=== PATIENT | female | born 1950 | race Hispanic/Latino ===

== ENCOUNTER 2017-04-02 22:09 | Inpatient (IN) | payer MEDICARE, BC ==
[~2017-04-02 22:09] MED LIST: Iopamidol 370 76% 100 ML VIAL ONE
[2017-04-02] MEDS ORDERED: Morphine 4 MG/ML VIAL ONE (22:39)
[2017-04-02] MEDS ORDERED: Promethazine HCl 25 MG/ML VIAL ONE (22:39)
[2017-04-02 22:57] LABS: #Lymphocytes 0.9 thou/uL (1.20-3.40); #Monocytes 0.5 thou/uL (0.11-0.59); %Eosinophils 0.4 % (0.0-10.0); %Lymphocytes 9.6 % (21.0-51.0); %Monocytes 5.1 % (0.0-10.0); Hematocrit 39.2 % (36.0-47.0); Mean Platelet Volume 7.8 fL (7.4-10.4); Red Blood Cell (RBC) Count 4.25 mill/uL (4.20-5.40); White Blood Cell (WBC) Count 9.4 thou/uL (4.8-10.8)
[2017-04-02 23:10] LABS: ALT (SGPT) 68 U/L (8-55); AST (SGOT) 130 U/L (5-34); Alkaline Phosphatase 146 U/L (40-150); Anion Gap 12 mmol/L (10-20); BUN (Urea Nitrogen) 15 mg/dL (9.8-20.1); Bilirubin, Total 1.1 mg/dL (0.2-1.2); Calc. Creatinine Clearance 0 mL/min (70-130); Calcium 9.5 mg/dL (7.8-10.44); Carbon Dioxide 28 mmol/L (23-31); Chloride 105 mmol/L (98-107); Estimated GFR-MDRD 90; Lipase 63 U/L (8-78); Magnesium 1.7 mg/dL (1.6-2.6); Protein, Total 6.9 g/dL (6.0-8.3)
[2017-04-02 23:15] LABS: Troponin I Less than 0.010 ng/mL (< 0.028)
--- NOTE | 2017-04-02 23:58 | CT ---
CT ABDOMEN AND PELVIS WITH IV CONTRAST: Indication: Epigastric abdominal pain, history of hypertension, diabetes and colon cancer. Comparison: 10-05-16 FINDINGS: There is post procedural change again seen consistent with end colostomy within the left lower quadra nt of the abdomen. Small Angel's pouch is present. Previously seen fluid collection within the lida anal region is no longer demonstrated. The bladder is decompressed. Small bowel is of normal caliber. No focal hepatic lesion is evident. Spleen, pancreas, and adrenal glands appear within normal limits . Kidneys are normal appearing. Small sub millimeter pulmonary nodule within the right middle lobe is stable. No acute osseous abnormality is evident. Multiple hemangiomas in the mid to lower thoracic s pine appear similar. Additional bone hemangioma is seen within L5. IMPRESSION: No definite CT explanation for the patient's abdominal pain. POS: ANGELA
[2017-04-03] MEDS ORDERED: Pantoprazole 40 MG VIAL ONE (00:12)
[2017-04-03] MEDS ORDERED: diphenhydrAMINE 50 MG/ML VIAL ONE (00:12)
[2017-04-03] MEDS ORDERED: Ondansetron HCl/PF 4 MG/2 ML Vial ONE ×2 (00:12→16:29)
[2017-04-03] MEDS ORDERED: Ondansetron HCl/PF 4 MG/2 ML Vial IVP PRN (01:58)
[2017-04-03] MEDS ORDERED: Ondansetron ODT 4 MG TAB SL PRN (01:58)
[2017-04-03] MEDS: Sodium Chloride 0.9% 1,000 ML IV SCH ×2 (02:00→09:58)
[2017-04-03 02:41] VITALS: BMI 45.3
[2017-04-03] MEDS ORDERED: Morphine 4 MG/ML VIAL SLOW IVP SCH (03:15)
--- NOTE | 2017-04-03 08:12 | RAD ---
PORTABLE CHEST: Date: 04/03/17 PROVIDED CLINICAL HISTORY: : Abdominal pain. FINDINGS: Comparison made with the study dated 12/30/16. The cardiac silhouette appears enlarged, which may be at least partially on the basis of portable conor hnique. Left-sided implanted port is again noted. There is mild kinking of the portion of the cathete r that overlies the left third rib, which was not apparent on the prior study. There is no focal cons olidation, pleural fluid, or pneumothorax apparent. IMPRESSION: Cardiomegaly without evidence for an acute cardiopulmonary process. Appearance of implanted port as a stacy. POS: OFF
[2017-04-03] MEDS ORDERED: Dextrose 50% Abboject 50 ML SYRINGE SLOW IVP PRN (08:56)
[2017-04-03] MEDS ORDERED: Dextrose 5% in Water 1,000 ML IV PRN (08:56)
[2017-04-03] MEDS ORDERED: Ondansetron ODT 4 MG TAB PO PRN (08:57)
[2017-04-03] MEDS ORDERED: Potassium Chloride 20 MEQ TAB PO SCH (09:00)
[2017-04-03] MEDS ORDERED: Non-Formulary Item 1 EACH (Insulin Glargine,Hum.Rec.Anlog 40 UNIT) SQ SCH (09:00)
[2017-04-03 09:28] LABS: #Lymphocytes 0.7 thou/uL (1.20-3.40); #Monocytes 0.2 thou/uL (0.11-0.59); #Neutrophils 5.8 thou/uL (1.40-6.50); %Basophils 0.1 % (0.0-1.0); %Eosinophils 0.1 % (0.0-10.0); %Lymphocytes 10.1 % (21.0-51.0); %Monocytes 3.4 % (0.0-10.0); Hematocrit 35.4 % (36.0-47.0); Mean Platelet Volume 8.4 fL (7.4-10.4); Red Blood Cell (RBC) Count 3.83 mill/uL (4.20-5.40); White Blood Cell (WBC) Count 6.8 thou/uL (4.8-10.8)
[2017-04-03] MEDS: Lisinopril 5 MG TAB PO SCH ×2 (09:47→21:57)
[2017-04-03] MEDS: Furosemide 40 MG TAB PO SCH (09:47)
[2017-04-03] MEDS: Insulin Detemir 100 UNITS/ML 40 UNITS in Pre-Filled Syringe 1 EACH SC SCH ×2 (09:48→21:54)
--- NOTE | 2017-04-03 09:55 | ULT ---
RIGHT UPPER QUADRANT ULTRASOUND: HISTORY: Right upper quadrant pain, nausea, vomiting, elevated LFTs. FINDINGS: Multiple longitudinal and transverse images of the right upper quadrant of the abdomen were obtained using a multihertz curvilinear transducer. Real-time, color flow, and spectral waveform Doppler anal ysis was used to evaluate the right upper quadrant of the abdomen. Images demonstrate fibrofatty changes seen in the liver. The gallbladder contains numerous echogenic foci with shadow compatible with numerous gallstones. No evidence of intrahepatic biliary dilatation is seen. The gallbladder wall is moderately thickened m easuring up to 7 mm. No evidence of intrahepatic biliary dilatation is seen. Normal hepatopetal flow is seen. Cholelithiasis with gallbladder wall thickening concerning for cholecystitis. POS: [facility]
[2017-04-03 10:02] LABS: ALT (SGPT) 169 U/L (8-55); AST (SGOT) 222 U/L (5-34); Alkaline Phosphatase 159 U/L (40-150); Anion Gap 9 mmol/L (10-20); BUN (Urea Nitrogen) 15 mg/dL (9.8-20.1); Bilirubin, Total 2.6 mg/dL (0.2-1.2); Calc. Creatinine Clearance 131 mL/min (70-130); Calcium 8.9 mg/dL (7.8-10.44); Carbon Dioxide 30 mmol/L (23-31); Chloride 104 mmol/L (98-107); Estimated GFR-MDRD 77; Globulin 2.8 g/dL (2.4-3.5); Lipase 55 U/L (8-78); Protein, Total 6.4 g/dL (6.0-8.3)
[2017-04-03] MEDS: HumaLOG 300 UNITS/3 ML VIAL SC PRN (13:38)
[2017-04-03] MEDS ORDERED: cefOXitin 2 GM in Sodium Chloride 0.9% 100 ML IVPB SCH ×2 (13:45→22:00)
[2017-04-03] MEDS ORDERED: cefOXitin 2 GM, Syringe 1 ML in Sterile Water 10 ML SLOW IVP SCH (14:15)
--- NOTE | 2017-04-03 14:31 | HP ---
CHIEF COMPLAINT: Epigastric abdominal pain. HISTORY: This 66-year-old female developed acute onset of severe epigastric pain yesterday, radiatin g to back, associated with nausea and vomiting. Ultrasound showed thickened gallbladder wall with ga llstones. PAST MEDICAL HISTORY: Significant for colon cancer, diabetes, gastroesophageal reflux. PAST SURGICAL HISTORY: Past surgeries include an abdominoperineal resection, MediPort placement. SOCIAL HISTORY: She is a former tobacco user. Drinks alcohol rarely. FAMILY HISTORY: Noncontributory. MEDICATIONS: Lantus, metformin, Humalog, Nexium, pentoxifylline, carbamazepine, Lasix, aspirin, hydr ocodone, potassium, lisinopril. PHYSICAL EXAMINATION: VITAL SIGNS: Temperature 98.5, pulse 70, blood pressure 134/58. GENERAL: She is an obese female in no apparent distress. HEENT: No jaundice. LUNGS: Clear. HEART: Regular rate and rhythm. ABDOMEN: Obese, soft, nontender at this time. She has a well-healed surgical scar low midline as we ll as a colostomy in the left lower quadrant. EXTREMITIES: Unremarkable. LABORATORY DATA: White count 6.8, H and H 11 and 35, platelet count 188. LFTs show an elevated tota l bilirubin at 2.6, AST at 222, ALT 169, alkaline phosphatase 159, glucose 270. An ultrasound showed gallstones with a gallbladder wall thickening consistent with acute cholecystiti s. ASSESSMENT: Acute cholecystitis. PLAN: Laparoscopic cholecystectomy with cholangiogram. CONSENT: I have discussed the planned procedure as well as risk of bleeding, infection, injury to bi le duct, injury to bowel, need to open. She understands and gives informed consent.
[2017-04-03] MEDS ORDERED: Morphine PF 1 MG/ML SYR IVP SCH (15:00)
[2017-04-03] MEDS ORDERED: Iothalamate Meglumine 60% 50 ML VIAL FS ONE (16:26)
[2017-04-03] MEDS ORDERED: Bupivacaine/Epinephrine 0.25% 30 ML VIAL ONE (16:26)
[2017-04-03] MEDS ORDERED: Lidocaine 1% PF 5 ML VIAL ONE (16:29)
[2017-04-03] MEDS ORDERED: ePHEDrine/0.9% NaCl/PF SYRINGE 50 mg/10 ml ONE (16:29)
[2017-04-03] MEDS ORDERED: Dexamethasone 20 MG/5 ML VIAL ONE (16:29)
[2017-04-03] MEDS ORDERED: Glycopyrrolate 0.2 MG/ML 5 ML SYRINGE ONE (16:29)
[2017-04-03] MEDS ORDERED: Propofol 200 MG/20 ML VIAL ONE (16:29)
[2017-04-03] MEDS ORDERED: Fentanyl 250 MCG/5 ML VIAL ONE (16:36)
[2017-04-03] MEDS ORDERED: Midazolam HCl 2 mg/2 ml Vial ONE (16:36)
[2017-04-03] MEDS ORDERED: Promethazine HCl 25 MG/ML VIAL SLOW IVP PRN (17:53)
[2017-04-03] MEDS ORDERED: Morphine Sulfate 2 MG/ML SYRINGE SLOW IVP PRN (17:53)
[2017-04-03] MEDS ORDERED: HYDROmorphone 2 MG/ML VIAL SLOW IVP PRN (17:53)
[2017-04-03] MEDS ORDERED: Meperidine HCl/PF 25 MG/ML VIAL SLOW IVP PRN (17:53)
[2017-04-03] MEDS ORDERED: Promethazine HCl 25 MG/ML VIAL ONE (19:02)
[2017-04-03] MEDS ORDERED: Morphine 4 MG/ML VIAL ONE ×2 (19:07→19:19)
--- NOTE | 2017-04-03 19:28 | RAD ---
INTRAOPERATIVE CHOLANGIOGRAM: History: Cholelithiasis. Comparison: None. Exposure: 0.338 milligray. 0.0862 mGy*cm^2. 1 second. FINDINGS: Two images demonstrate opacification of the intra and extrahepatic biliary system. There is passage o f contrast into the small bowel. IMPRESSION: Fluoroscopy as above. POS: ANGELA
[2017-04-03] MEDS ORDERED: HYDROcodone/Acetaminophen 7.5/325 mg Tablet PO PRN (19:37)
[2017-04-03] MEDS: Gabapentin 100 MG CAP PO SCH (21:55)
[2017-04-03] MEDS: D5 1/2 NS w/20 mEq KCL 1,000 ML IV SCH (22:08)
[2017-04-03] MEDS: cefOXitin 2 GM, Syringe 1 ML in Sterile Water 10 ML SLOW IVP SCH (22:52)
[2017-04-03] MEDS: Morphine 4 MG/ML VIAL SLOW IVP PRN (22:59)
--- NOTE | 2017-04-04 00:30 | OP ---
PREOPERATIVE DIAGNOSIS: Acute cholecystitis with elevated liver function tests. SURGEON: Sea Burnette M.D. PROCEDURE PERFORMED: Laparoscopic cholecystectomy with intraoperative cholangiogram. INDICATIONS: This is a 66-year-old female, who presented with severe midepigastric pain radiating to the back, associated with nausea. Ultrasound and CT showed a thickened gallbladder wall with multip le stones. FINDINGS: A thickened gallbladder wall, multiple stones, cholangiogram was negative. She had a very fatty liver. DESCRIPTION OF PROCEDURE: After informed consent was obtained, the patient was taken to the operatin g room and given general endotracheal anesthesia. She was placed in the supine position. The abdome n was prepped and draped in the usual fashion. An upper midline incision was performed. Subcu divid ed sharply. The fascia grasped and two stay sutures of 0 Vicryl placed to either side of midline. M idline incised. Digital palpation revealed no local adhesions. A blunt 10-12 mm trocar inserted. P neumoperitoneum was created to a pressure of 15 mmHg. A 0 degree laparoscope inserted and her transv erse colon was plastered up against the anterior abdominal wall. I was able to insert my finger and very gently was able to dissect that down to create a space then reinserted the camera and at this ti me, there was a clear view of the liver and gallbladder. The patient placed in the reverse Trendelen lj position and three 5-mm ports were placed subcostally. The gallbladder grasped and advanced sup eriorly. The peritoneum was dissected off to expose the cystic duct, artery and critical view. A cl ip was placed at the base of the gallbladder and the cystic duct incised. An Arrow cholangiocatheter inserted. Intraoperative cholangiogram was performed utilizing fluoroscopy showing free flow into t he duodenum, no filling defects, normal hepatic ducts. The catheter removed. The duct triply ligate d and divided. The artery triply ligated and divided. The gallbladder was removed from its fossa ut ilizing electrocautery. She had a very, very fatty liver that was engorged and very quite a bit of b lood from the liver bed. This was controlled utilizing electrocautery as well as Jackie powder. The abdomen irrigated and irrigation fluid removed. Trocars and retractors removed. The fascia closed with interrupted 0 Vicryl suture. The skin closed with interrupted 4-0 Rapide. Dermabond applied. The patient tolerated the procedure well and transferred to recovery in good condition. Sponge and n eedle count verified correct x2.
[2017-04-04] MEDS: HYDROcodone/Acetaminophen 7.5/325 mg Tablet PO PRN ×2 (01:57→07:20)
[2017-04-04] MEDS: cefOXitin 2 GM, Syringe 1 ML in Sterile Water 10 ML SLOW IVP SCH ×3 (06:22→21:31)
[2017-04-04] MEDS: HumaLOG 300 UNITS/3 ML VIAL SC PRN ×3 (06:29→20:36)
--- NOTE | 2017-04-04 07:11 | HP ---
DATE OF ADMISSION: 04/03/2017 TIME OF SERVICE: 08:30 CHIEF COMPLAINT: Abdominal pain, nausea, and vomiting. HISTORY OF PRESENT ILLNESS: Ms. Boo is a very pleasant 66-year-old female with a history of rectal cancer status post resection, diabetes , and GERD who at 8:20 p.m. the night prior to admission, developed epigastric pain and left lateral abdominal pain. She has a sharp sensation, 10/10, that was fairly unrelenting approach. She had eaten food throughout the day without much difficulty associated with that. She did have nausea and vomiting and vomited basically from 8:20 p.m. until 04:00 after admission. Denied blood in bile. She said it was almost projectile and was asked to clean her parker. At this time, the pain is gone. Just has the dull ache from her sore abdominal muscles. She has been sleeping pretty well from 04:00 to 06:45. She describes the pain in the left lateral abdomen, however, states that she has had some sharp pains present in the right upper abdomen as well. No diarrhea, no GI bleeding from above or below. No fevers or chills, and sugars have been elevated recently. PAST MEDICAL HISTORY: 1. Diabetes mellitus type 2. 2. Gastroesophageal reflux disease. 3. Adenocarcinoma of the rectosigmoid colon. PAST SURGICAL HISTORY: Includes: 1. MediPort placement on 12/30/[address] Burnette. 2. I&D of a perineal abscess, 08/14/[address] Burentte. 3. Rectal cancer resection, 07/11/[address] Burnette. 4. Partial hysterectomy in 1976. 5. Total abdominal hysterectomy and bilateral salpingo-oophorectomy in 1980. HOME MEDICATIONS: 1. Humalog sliding scale. 2. Lantus 40 units subcutaneously b.i.d. 3. Neurontin 400 mg p.o. at bedtime. 4. Lasix 40 mg daily. 5. Nexium 40 mg p.o. daily. 6. Tegretol-XR 200 mg p.o. b.i.d. 7. Potassium chloride 20 mEq daily. 8. Zofran 4 mg p.o. q.4 hours p.r.n. 9. Lisinopril 5 mg p.o. b.i.d. 10. Metformin 1000 mg p.o. b.i.d. 11. Aspirin 81 mg daily. 12. Trental 400 mg p.o. t.i.d. ALLERGIES: To SULFA. FAMILY HISTORY: Negative for clotting or bleeding disorder, no immune dysfunction. SOCIAL HISTORY: Negative for habits x3. She is . She does live at home and lives alone. She has 2 daughters that are here in the room. REVIEW OF SYSTEMS: Full 10-point review of systems was performed and negative for all other systems except as stated as per HPI. PHYSICAL EXAMINATION: VITAL SIGNS: Temperature 98.8, pulse 53, blood pressure 186/72, respiratory rate 18, satting at 90%-95% on 2 liters nasal cannula. GENERAL: She is awake. She is alert. She is oriented x3. The patient is obese female appears to be in no acute distress. HEENT: Head is normocephalic, atraumatic. Pupils equal, round and reactive to light bilaterally. Mucous membranes are moist. There are no visible lesions. No thrush. NECK: Supple, without lymphadenopathy, JVD or thyromegaly. LUNGS: Clear. She has no wheezes, no rales, no rhonchi. No prolonged expiratory phase. She has symmetrical chest excursion. CARDIOVASCULAR: Normal S1, S2. She does not have any murmurs. No gallops. ABDOMEN: Obese, mildly diffusely tender. She has significantly increased pain to the right upper quadrant and does have a Plascencia sign. She has no rebound, rigidity or guarding. EXTREMITIES: No cyanosis or clubbing. She has no edema. SKIN: Warm, moist, well perfused without rashes or lesions. MUSCULOSKELETAL: Shows joints to be noninflamed. No palpable joint effusion, normal to inspection. NEUROLOGIC: Shows cranial nerves II through XII are grossly intact. She has no focal neurologic deficits, 5/5 strength, normal speech pattern. LABORATORY DATA: CMP is normal except for an AST of 130 and ALT of 68. Creatinine 0.66. Electrolytes normal. Total white count 9.4, hemoglobin 12.7, hematocrit 39.2, platelet count 188,000. X-RAY FINDINGS: Chest x-ray showed no acute disease and CT abdomen and pelvis showed colostomy intact. She has no fluid outside the bowel. ASSESSMENT AND PLAN: 1. Abdominal pain, nausea, vomiting. She does have increased LFTs and a Plascencia sign. We will get an abdominal ultrasound to look for gallbladder disease. If possible, Call Dr. Burnette for consideration of a laparoscopic cholecystectomy. 2. Diabetes mellitus type 2, insulin-dependent. She will be n.p.o. until ultrasound. We will resume her Lantus after that. We will hold her metformin at present. Check lactic acid. 3. Gastroesophageal reflux disease. We will continue her PPI. 4. History of rectosigmoid adenocarcinoma, status post resection with colostomy and seems to functioning just fine. CT of the abdomen and pelvis, negative for intra-abdominal pathology, but sensitivity for gallbladder disease is lower. We will follow up on the results. DAYRON
[2017-04-04 07:32] LABS: #Lymphocytes 0.7 thou/uL (1.20-3.40); #Monocytes 0.3 thou/uL (0.11-0.59); #Neutrophils 4.2 thou/uL (1.40-6.50); %Basophils 0.1 % (0.0-1.0); %Eosinophils 0.2 % (0.0-10.0); %Lymphocytes 13.5 % (21.0-51.0); %Monocytes 5.5 % (0.0-10.0); Hematocrit 35.7 % (36.0-47.0); Mean Platelet Volume 8.3 fL (7.4-10.4); Red Blood Cell (RBC) Count 3.73 mill/uL (4.20-5.40); White Blood Cell (WBC) Count 5.2 thou/uL (4.8-10.8)
[2017-04-04 07:56] LABS: ALT (SGPT) 217 U/L (8-55); AST (SGOT) 183 U/L (5-34); Alkaline Phosphatase 176 U/L (40-150); Anion Gap 11 mmol/L (10-20); BUN (Urea Nitrogen) 14 mg/dL (9.8-20.1); Bilirubin, Total 2.5 mg/dL (0.2-1.2); Calc. Creatinine Clearance 124 mL/min (70-130); Calcium 8.5 mg/dL (7.8-10.44); Carbon Dioxide 26 mmol/L (23-31); Chloride 107 mmol/L (98-107); Estimated GFR-MDRD 73; Globulin 2.6 g/dL (2.4-3.5); Magnesium 1.5 mg/dL (1.6-2.6); Protein, Total 5.8 g/dL (6.0-8.3)
[2017-04-04] MEDS: Ondansetron HCl/PF 4 MG/2 ML Vial IVP PRN ×2 (08:04→11:53)
[2017-04-04] MEDS: D5 1/2 NS w/20 mEq KCL 1,000 ML IV SCH ×2 (08:18→21:31)
[2017-04-04] MEDS: Morphine 4 MG/ML VIAL SLOW IVP PRN ×2 (09:03→11:57)
[2017-04-04] MEDS: Furosemide 40 MG TAB PO SCH (10:14)
[2017-04-04] MEDS: Insulin Detemir 100 UNITS/ML 40 UNITS in Pre-Filled Syringe 1 EACH SC SCH ×3 (10:14→20:34)
[2017-04-04] MEDS: Lisinopril 5 MG TAB PO SCH ×2 (10:15→20:36)
[2017-04-04] MEDS ORDERED: hydrALAZINE 20 MG/ML VIAL SLOW IVP SCH (11:15)
--- NOTE | 2017-04-04 11:43 | PDOC.PN ---
- Subjective Encounter Start Date: 04/04/17 Encounter Start Time: 10:00 Pt underwent laparoscopic cholecystectomy yesterday. fatty liver noted, thicken GB wall descirbed. Stones present in GB, IOC performed and no filling defect seen. Pt afebrile overnight, but this morning, developed epigastric pain exactly like what she had when she came in recurred. Unresponsive to po norco and 4mg IV morphine. Pt screaming out, cant take a deep breath due to pain. No N/V, no CP, no chills or rigors - Objective Resuscitation Status: full MAR Reviewed: Yes Vital Signs & Weight: Vital Signs (12 hours) Temp Pulse Resp BP Pulse Ox 04/04/17 10:15 68 04/04/17 07:46 99.8 F H 68 16 04/04/17 07:30 99.1 F 71 18 161/70 H 92 L 04/04/17 04:00 99.8 F H 68 16 131/56 L 92 L 04/04/17 01:30 71 16 139/64 04/04/17 00:30 72 16 144/65 H 04/03/17 23:55 73 16 151/65 H Weight Weight 248 lb I&O: 04/03/17 04/04/17 04/05/17 06:59 06:59 06:59 Intake Total 500 1271 Balance 500 1271 Result Diagrams: 04/04/17 07:19 04/04/17 07:19 Additional Labs: Accuchecks 04/04/17 04/03/17 04/03/17 06:26 20:53 15:37 POC Glucose 263 H 189 H 162 H Radiology Reviewed by me: Yes EKG Reviewed by me: No Phys Exam - Physical Examination Constitutional: NAD HEENT: PERRLA, moist MMs, sclera anicteric, oral pharynx no lesions Neck: no nodes, no JVD, supple, full ROM Respiratory: no wheezing, no rales, no rhonchi, clear to auscultation bilateral Cardiovascular: RRR, no significant murmur, no rub Gastrointestinal: no distention, positive bowel sounds epigatric tenderness, no rebound, present BS Musculoskeletal: no edema, pulses present Neurological: non-focal, normal sensation, moves all 4 limbs Lymphatic: no nodes Psychiatric: normal affect, A&O x 3 Skin: no rash, normal turgor, cap refill <2 seconds Dx/Plan (1) Acute calculous cholecystitis Code(s): K80.00 - CALCULUS OF GALLBLADDER W ACUTE CHOLECYST W/O OBSTRUCTION Status: Resolved Comment: s/p lap vinnie 04/03/2017 (2) Abdominal pain Code(s): R10.9 - UNSPECIFIED ABDOMINAL PAIN Status: Acute Qualifiers: Abdominal location: epigastric Qualified Code(s): R10.13 - Epigastric pain Comment: post lap vinnie. nursing to contact Dr Rivero, will get a STAT repeat CT to R/O hemtoma, large leak. (3) DM2 (diabetes mellitus, type 2) Status: Chronic Qualifiers: Diabetes mellitus complication status: without complication Diabetes mellitus termite exterminator insulin use: with termite exterminator use Qualified Code(s): E11.9 - Type 2 diabetes mellitus without complications; Z79.4 - MCFP (current) use of insulin; Z79.4 - exterminator (current) use of insulin; Z79.4 - exterminator ( current) use of insulin; Z79.4 - exterminator (current) use of insulin (4) Rectal cancer Code(s): C20 - MALIGNANT NEOPLASM OF RECTUM Status: Chronic - Plan cont current plan of care, plan discussed w/ family * .
--- NOTE | 2017-04-04 12:49 | CT ---
CT ABDOMEN AND PELVIS: 04/04/2017 HISTORY: Abdominal pain following laparoscopic cholecystectomy, performed on 04/03/2017. History of rectal ca ncer. COMPARISON: 04/02/2017, 10/05/2016, 09/22/2016 TECHNIQUE: Serial axial CT imaging is obtained at 5 mm intervals, from the lung bases through the pubic symphysi s, with IV and oral contrast. Coronal reformatted imaging obtained. FINDINGS: Tiny bilateral pleural effusions are noted with adjacent atelectasis. There are numerous foci of subcutaneous gas anteriorly, in the right upper quadrant and in the perium bilical region, consistent with the provided history of cholecystectomy on 04/03/2017. In addition, there is small volume intraperitoneal gas, consistent with recent surgery. There are cholecystectomy clips present. No focal hepatic or splenic abnormality. The pancreas and adrenal glands demonstrate no acute findings. The kidneys are grossly unremarkable. There is small volume fluid in the gallbladder fossa region, of uncertain significance given very rec ent cholecystectomy. The fluid within the gallbladder fossa is ill defined and measures in the 1.7 x 3.9 x 1.6 cm range. Minimal stranding of the adjacent fat inferior to this extends to abut the brad on of the hepatic flexure. There is a left lower quadrant ostomy with associated fat-containing parastomal hernia, unchanged whe n compared to the prior exam. There is some gas within the hernia sac, consistent with recent surger y. there is an ill defined, irregular soft tissue mass density at the level of the rectal stump/presacra l space, measuring approximately 5 cm in transverse dimension. The soft tissue irregular mass densit y has been seen in this region on numerous prior CT examinations, not significantly changed. There is small volume fluid trapped within leaves of the mesentery, inferiorly, within the pelvis, be st seen on image 80, new when compared to the prior exam. There is no evidence for small bowel obstruction. There are small nodes in the norma hepatis, similar when compared to prior imaging. There is a retroaortic left renal vein. There is no lymphadenopathy in the retroperitoneum. There is extensive atherosclerotic calcification of the infrarenal abdominal aorta and its branches. The osseous structures demonstrate multilevel degenerative change within the lumbar spine and imaged thoracic spine. There is no worrisome lytic or blastic bone lesion identified. IMPRESSION: 1. Foci of subcutaneous gas, as well as foci of intraperitoneal gas, consistent with the patient's h istory of cholecystectomy on 04/03/2017. There is small volume fluid within the gallbladder fossa an d within the mesentery inferiorly. The significance of this fluid is uncertain, given very recent hernandez rgery. If there is persistent pain or concern for biliary leak, a follow-up hepatobiliary scan is ad vised. 2. No evidence for small bowel obstruction. 3. There is irregular soft tissue mass-like opacity in the presacral space, at the level of the lizzy ent's rectal stump, etiology uncertain. This could represent tumor, scar, or resolving inflammatory/ infectious process. Close clinical followup is required. POS: ANGELA
[2017-04-04] MEDS: Morphine 4 MG/ML VIAL SLOW IVP SCH ×4 (13:02→16:12)
[2017-04-04] MEDS: Promethazine HCl 25 MG/ML VIAL IM/IV PRN (13:03)
--- NOTE | 2017-04-04 13:11 | EKG ---
Test Reason : PREOP Blood Pressure : / mmHG Vent. Rate : 066 BPM Atrial Rate : 066 BPM P-R Int : 306 ms QRS Dur : 078 ms QT Int : 410 ms P-R-T Axes : 045 016 036 degrees QTc Int : 429 ms Sinus rhythm with 1st degree A-V block Otherwise normal ECG When compared with ECG of 03-APR-2017 01:15:08, No significant change was found Confirmed by JOSE LUIS FERRER ([id number]) on 04/04/2017 1:11:16 PM Referred By: MERRY Confirmed By:JOSE LUIS FERRER
[2017-04-04] MEDS: Gabapentin 100 MG CAP PO SCH (20:37)
[2017-04-05 05:29] LABS: #Eosinphils 0.1 thou/uL (0.0-0.7); #Lymphocytes 0.8 thou/uL (1.20-3.40); #Monocytes 0.5 thou/uL (0.11-0.59); #Neutrophils 5.3 thou/uL (1.40-6.50); %Basophils 0.1 % (0.0-1.0); %Eosinophils 0.8 % (0.0-10.0); %Lymphocytes 12.6 % (21.0-51.0); %Monocytes 7.7 % (0.0-10.0); Hematocrit 32.2 % (36.0-47.0); Mean Platelet Volume 8.3 fL (7.4-10.4); Red Blood Cell (RBC) Count 3.39 mill/uL (4.20-5.40); White Blood Cell (WBC) Count 6.7 thou/uL (4.8-10.8)
[2017-04-05 05:48] LABS: ALT (SGPT) 164 U/L (8-55); AST (SGOT) 73 U/L (5-34); Alkaline Phosphatase 182 U/L (40-150); Anion Gap 8 mmol/L (10-20); BUN (Urea Nitrogen) 9 mg/dL (9.8-20.1); Bilirubin, Total 1.5 mg/dL (0.2-1.2); Calc. Creatinine Clearance 172 mL/min (70-130); Calcium 8.3 mg/dL (7.8-10.44); Carbon Dioxide 26 mmol/L (23-31); Chloride 107 mmol/L (98-107); Estimated GFR-MDRD Greater than 90; Globulin 2.7 g/dL (2.4-3.5); Magnesium 1.8 mg/dL (1.6-2.6); Protein, Total 5.7 g/dL (6.0-8.3)
[2017-04-05] MEDS: cefOXitin 2 GM, Syringe 1 ML in Sterile Water 10 ML SLOW IVP SCH ×3 (06:04→21:39)
[2017-04-05] MEDS: Morphine 4 MG/ML VIAL SLOW IVP PRN ×5 (06:47→21:51)
[2017-04-05] MEDS: Ondansetron HCl/PF 4 MG/2 ML Vial IVP PRN ×2 (06:49→13:34)
[2017-04-05] MEDS ORDERED: Acetaminophen 1,000 MG in Premix Bag 1 BAG IVPB PRN (07:05)
[2017-04-05] MEDS: D5 1/2 NS w/20 mEq KCL 1,000 ML IV SCH ×3 (07:51→18:35)
[2017-04-05] MEDS: Ketorolac Tromethamine 30 MG/ML VIAL IVP PRN ×2 (07:54→13:34)
[2017-04-05] MEDS: Pantoprazole 40 MG VIAL IVP SCH (08:34)
[2017-04-05] MEDS: Promethazine HCl 25 MG/ML VIAL IM/IV PRN ×2 (08:34→14:05)
[2017-04-05] MEDS: Furosemide 40 MG TAB PO SCH (08:51)
[2017-04-05] MEDS: Insulin Detemir 100 UNITS/ML 40 UNITS in Pre-Filled Syringe 1 EACH SC SCH ×2 (08:51→21:41)
[2017-04-05] MEDS: Lisinopril 5 MG TAB PO SCH ×2 (08:52→21:38)
[2017-04-05] MEDS ORDERED: Scopolamine 1.5 mg/72 hour Patch TOP PRN (11:13)
[2017-04-05] MEDS ORDERED: Fentanyl 100 MCG/2 ML VIAL SLOW IVP PRN (11:13)
[2017-04-05] MEDS: HumaLOG 300 UNITS/3 ML VIAL SC PRN ×2 (12:33→16:42)
--- NOTE | 2017-04-05 14:32 | PDOC.PN ---
- Subjective Encounter Start Date: 04/05/17 Encounter Start Time: 08:15 Pt seen and examined earlier on rounds. Dr Burnette in earlier, PT with increased abd pain againthis morning after being much better last evening. No F/c, no N/ VD/C, no CP or SOB. epigastric sharp stabbing pain. Labs reviewed, 10 point ROS performed and neg for all systems except as per HPI - Objective Resuscitation Status: full MAR Reviewed: Yes Vital Signs & Weight: Vital Signs (12 hours) Temp Pulse Resp BP Pulse Ox 04/05/17 08:52 69 04/05/17 08:30 97.5 F L 69 20 96 04/05/17 07:15 97.5 F L 69 184/77 H 96 04/05/17 03:55 99.3 F 64 16 131/63 94 L Weight Admit Weight 248 lb Weight 248 lb I&O: 04/04/17 04/05/17 04/06/17 06:59 06:59 06:59 Intake Total 2770 Balance 2770 Result Diagrams: 04/05/17 04:07 04/05/17 04:07 Additional Labs: Accuchecks 04/05/17 04/05/17 04/04/17 11:29 05:43 20:12 POC Glucose 238 H 154 H 242 H 04/04/17 15:50 POC Glucose 275 H Radiology Reviewed by me: Yes EKG Reviewed by me: Yes Phys Exam - Physical Examination Constitutional: NAD HEENT: PERRLA, moist MMs, sclera anicteric, oral pharynx no lesions Neck: no nodes, no JVD, supple, full ROM Respiratory: no wheezing, no rales, no rhonchi, clear to auscultation bilateral Cardiovascular: RRR, no significant murmur, no rub Gastrointestinal: soft, no distention, positive bowel sounds epigastric tenderness, no lundberg sign, no rebound, no guarding Musculoskeletal: no edema, pulses present Neurological: non-focal, normal sensation, moves all 4 limbs Lymphatic: no nodes Psychiatric: normal affect, A&O x 3 Skin: no rash, normal turgor, cap refill <2 seconds Dx/Plan (1) Acute calculous cholecystitis Code(s): K80.00 - CALCULUS OF GALLBLADDER W ACUTE CHOLECYST W/O OBSTRUCTION Status: Resolved Comment: s/p lap vinnie 04/03/2017. Path with chronic cholecystitis (2) Abdominal pain Code(s): R10.9 - UNSPECIFIED ABDOMINAL PAIN Status: Acute Qualifiers: Abdominal location: epigastric Qualified Code(s): R10.13 - Epigastric pain Comment: post lap vinnie. Will discuss with dr Burnette, Ct unrevelaing yesterday, labs slightly better (3) DM2 (diabetes mellitus, type 2) Status: Chronic Qualifiers: Diabetes mellitus complication status: without complication Diabetes mellitus usp insulin use: with termite technician use Qualified Code(s): E11.9 - Type 2 diabetes mellitus without complications; Z79.4 - alf (current) use of insulin; Z79.4 - alf (current) use of insulin; Z79.4 - supervisor intermediates ( current) use of insulin; Z79.4 - supervisor intermediates (current) use of insulin (4) Rectal cancer Code(s): C20 - MALIGNANT NEOPLASM OF RECTUM Status: Chronic - Plan cont current plan of care, plan discussed w/ family, PT/OT, out of bed/ambulate * .
[2017-04-05] MEDS: hydrALAZINE 20 MG/ML VIAL SLOW IVP PRN (17:18)
[2017-04-05] MEDS: Gabapentin 100 MG CAP PO SCH (21:39)
--- NOTE | 2017-04-05 22:51 | CON ---
DATE OF CONSULTATION: 04/05/2017 HISTORY OF PRESENT ILLNESS: The patient is a 66-year-old female who was admitted on 017 for several day history of epigastric pain. This pain is nonradiating. It is associated with na usea, vomiting. She had a similar episode when she had vertigo, but she is having no vertigo now. T he patient was seen by Dr. Burnette and underwent a cholecystectomy and intraoperative cholangiogram. T his did not seem to relieve her pain. PAST MEDICAL HISTORY: Includes rectal cancer with radiation and colostomy placement, diabetes mellit us, gastroesophageal reflux. PAST SURGICAL HISTORY: Includes APR for rectal cancer, MediPort placement. MEDICATIONS: At the present time include Tegretol-XR 200 mg p.o. b.i.d., Mefoxin 2 grams IV q.8 hour s, fentanyl 50 mcg IV q.4 hours p.r.n., Lasix 40 mg p.o. q. day, Neurontin 100 mg p.o. at bedtime, in sulin sliding scale, Toradol 30 mg IV q.6 hours p.r.n., lisinopril 5 mg p.o. b.i.d., Protonix 40 mg p .o. q. day, treadmill 40 mg p.o. t.i.d. ALLERGIES: SULFA. SOCIAL HISTORY: She does not smoke or drink. FAMILY HISTORY: Negative for GI or liver disease. REVIEW OF SYSTEMS: Unobtainable. PHYSICAL EXAMINATION: GENERAL: Shows an obese female in moderate pain. VITAL SIGNS: Temperature is 98.8, pulse 70, respiratory rate 16, blood pressure 186/78. HEENT: Unremarkable. NECK: Supple. CHEST: Clear. CARDIOVASCULAR: Regular rate and rhythm. ABDOMEN: Soft, tender in the epigastric with some rebound. She has a colostomy in the left lower qu adrant and appears normal. RECTAL: Deferred. EXTREMITIES: Normal. LABORATORY DATA: Shows a white blood cell count 6.7, hemoglobin 10.5, hematocrit 32.5 and chemistrie s show a BUN 9, creatinine 0.57, glucose 148, total bilirubin 1.5, AST of 73, ALT of 164, alkaline ph osphatase 182, albumin is 3.0. Intraoperative cholangiogram shows 2 images of the intra and extrahep atic biliary system. There is flow into the small bowel. The actual films are not able to be viewed at this time. ASSESSMENT: 1. Severe epigastric pain. 2. History of rectal cancer. 3. Recent laparoscopic cholecystectomy. 4. Abnormal liver function tests. The patient had an intraoperative cholangiogram that did not show any stones per radiology report, however, this cannot be viewed directly, considering her abnormal l iver function tests, concern that maybe a common duct stone is present. RECOMMENDATIONS: 1. EGD in a.m. 2. Continue to follow LFTs.
[2017-04-06] MEDS: Morphine 4 MG/ML VIAL SLOW IVP PRN (03:03)
[2017-04-06] MEDS: Ondansetron HCl/PF 4 MG/2 ML Vial IVP PRN (03:07)
[2017-04-06 04:16] LABS: #Lymphocytes 0.5 thou/uL (1.20-3.40); #Monocytes 0.4 thou/uL (0.11-0.59); #Neutrophils 6.2 thou/uL (1.40-6.50); %Basophils 0.2 % (0.0-1.0); %Eosinophils 0.4 % (0.0-10.0); %Lymphocytes 7.2 % (21.0-51.0); %Monocytes 5.2 % (0.0-10.0); Hematocrit 39.4 % (36.0-47.0); Mean Platelet Volume 8.6 fL (7.4-10.4); Red Blood Cell (RBC) Count 4.18 mill/uL (4.20-5.40); White Blood Cell (WBC) Count 7.1 thou/uL (4.8-10.8)
[2017-04-06] MEDS: D5 1/2 NS w/20 mEq KCL 1,000 ML IV SCH ×2 (05:18→18:24)
[2017-04-06] MEDS: cefOXitin 2 GM, Syringe 1 ML in Sterile Water 10 ML SLOW IVP SCH ×3 (05:19→21:36)
[2017-04-06] MEDS: hydrALAZINE 20 MG/ML VIAL SLOW IVP PRN ×3 (05:25→20:49)
[2017-04-06 06:18] LABS: Chloride 106 mmol/L (98-107)
[2017-04-06 06:19] LABS: Calcium 8.7 mg/dL (7.8-10.44)
[2017-04-06 06:20] LABS: Globulin 2.8 g/dL (2.4-3.5); Protein, Total 5.8 g/dL (6.0-8.3)
[2017-04-06 06:21] LABS: Anion Gap 9 mmol/L (10-20); Bilirubin, Total 0.9 mg/dL (0.2-1.2); Carbon Dioxide 24 mmol/L (23-31)
[2017-04-06 06:22] LABS: Alkaline Phosphatase 180 U/L (40-150)
[2017-04-06 06:23] LABS: Calc. Creatinine Clearance 172 mL/min (70-130); Estimated GFR-MDRD Greater than 90
[2017-04-06 06:24] LABS: BUN (Urea Nitrogen) 6 mg/dL (9.8-20.1)
[2017-04-06 06:25] LABS: ALT (SGPT) 116 U/L (8-55); AST (SGOT) 25 U/L (5-34)
--- NOTE | 2017-04-06 08:23 | CT ---
PRELIMINARY REPORT/[facility]/EMERGENCY AFTER HOURS PROCEDURE: EXAM: CT Head Without Intravenous Contrast CLINICAL HISTORY: 66 years old, female; Injury or trauma; Fall; Initial encounter; Abrasion; Head, generalized; Patient HX: Fall from standing. Pt fell while on shower. Hit back of head, pt C/O headache, denies dizziness TECHNIQUE: Axial computed tomography images of the head/brain without intravenous contrast. COMPARISON: No relevant prior studies available. FINDINGS: Brain: There is no evidence for acute stroke or bleed. There is parenchymal volume loss. There are mild scat tered foci of decreased attenuation in the periventricular and subcortical white matter, nonspecific, but most consistent with chronic small vessel ischemic changes in patient of this age. There is dense atheromatous calcification of the distal left vertebral artery. Ventricles / cisterns / extra-axial spaces: There is no hydrocephalus, midline shift, or acute extra-axial fluid collection. There is no sulcal e ffacement. Sinuses: No findings of acute sinusitis or suspicious sinus mass. Bone: No acute fracture or displacement. Impression: Chronic changes without evidence for acute, intracranial pathology. Thank you for allowing us to participate in the care of your patient. Dictated and Authenticated by: Anna Gibbons MD 04/06/2017 3:08 AM Central Time ([place] & [place]) FINAL REPORT HEAD CT WITHOUT CONTRAST: Date: 04/06/17 COMPARISON: 07/19/02. HISTORY: Fall, trauma, pain, headache, and dizziness. FINDINGS: I agree with the preliminary report given by Deloris. The imaged paranasal sinuses and mastoid air cells are well aerated. There is no displaced calvarial fracture. There is no intracranial hemorrhage, mid line shift, mass effect, or ventricular enlargement. IMPRESSION: No acute findings. POS: [facility]
[2017-04-06] MEDS: Pantoprazole 40 MG VIAL IVP SCH (08:49)
[2017-04-06] MEDS: Lisinopril 5 MG TAB PO SCH ×2 (08:50→20:46)
[2017-04-06] MEDS: Furosemide 40 MG TAB PO SCH (08:50)
[2017-04-06] MEDS: Insulin Detemir 100 UNITS/ML 40 UNITS in Pre-Filled Syringe 1 EACH SC SCH ×2 (08:50→20:52)
[2017-04-06] MEDS ORDERED: Promethazine HCl 25 MG/ML VIAL ONE (09:33)
[2017-04-06] MEDS ORDERED: Promethazine 25 MG TAB ONE (09:33)
[2017-04-06] MEDS ORDERED: Ondansetron HCl/PF 4 MG/2 ML Vial ONE ×2 (09:33→17:26)
[2017-04-06] MEDS ORDERED: Meperidine HCl/PF 25 MG/ML VIAL SLOW IVP PRN (10:10)
[2017-04-06] MEDS ORDERED: Ondansetron HCl/PF 4 MG/2 ML Vial IVP PRN (10:10)
[2017-04-06] MEDS ORDERED: Promethazine HCl 25 MG/ML VIAL SLOW IVP PRN (10:10)
[2017-04-06] MEDS ORDERED: Fentanyl 100 MCG/2 ML VIAL ONE (10:24)
--- NOTE | 2017-04-06 10:33 | OP ---
DATE OF PROCEDURE: 04/06/2017 PROCEDURE: Esophagogastroduodenoscopy with biopsy. PREOPERATIVE DIAGNOSIS: Epigastric pain. OPERATIVE NOTE: Informed consent was obtained from the patient. She was sedated with total intraven ous anesthesia. The bite block was placed and the endoscope was advanced easily to the second portio n of the duodenum and retroflexion was performed in the stomach. The esophagus was normal. The GE j unction was normal. The stomach was normal including retroflexed views. The pylorus and first and s econd portions of the duodenum were normal. Biopsies were obtained from the second portion of the du odenum to rule out celiac disease. The air was suctioned from the stomach and procedure was complete d. IMPRESSION: 1. Normal esophagogastroduodenoscopy. Random duodenal biopsies taken. 2. It is noted that the patient underwent cholecystectomy recently. The transaminases are elevated along with alkaline phosphatase. Intraoperative cholangiogram was reportedly negative. If her bilir ubin rises, then she might require ERCP to rule out a retained stone. MRCP would be an alternative i f the bilirubin does not rise. RECOMMENDATIONS: 1. Await histopathology 2. Check liver function tests in the morning.
[2017-04-06] MEDS: Ketorolac Tromethamine 30 MG/ML VIAL IVP PRN ×2 (11:17→20:54)
[2017-04-06] MEDS: HumaLOG 300 UNITS/3 ML VIAL SC PRN ×2 (11:54→15:43)
--- NOTE | 2017-04-06 11:58 | PDOC.PN ---
- Subjective Encounter Start Date: 04/06/17 Encounter Start Time: 11:56 pt had egd this am which is normal. still has abd pain and nausea and vomiting hallucinations due to fentanyl better. will stop that no fever and chills bp high when pt distressed - responding to iv hydralazine - Objective MAR Reviewed: Yes Vital Signs & Weight: Vital Signs (12 hours) Temp Pulse Resp BP BP BP Pulse Ox 04/06/17 11:17 82 190/76 H 04/06/17 08:50 77 04/06/17 07:23 98.1 F 77 16 96 04/06/17 07:10 98.1 F 78 16 151/66 H 96 04/06/17 06:20 77 157/69 H 04/06/17 05:25 71 197/77 H 04/06/17 05:22 98.8 F 71 20 197/71 H 94 L 04/06/17 02:00 98.0 F 80 12 164/71 H 98 Weight Admit Weight 248 lb Weight 248 lb I&O: 04/05/17 04/06/17 04/07/17 06:59 06:59 06:59 Intake Total 2770 Balance 2770 Result Diagrams: 04/06/17 03:40 04/06/17 05:13 Additional Labs: Accuchecks 04/06/17 04/05/17 04/05/17 05:23 20:58 15:26 POC Glucose 226 H 223 H 215 H 04/05/17 11:29 POC Glucose 238 H Phys Exam - Physical Examination Constitutional: NAD HEENT: PERRLA Neck: no JVD Respiratory: no wheezing Cardiovascular: no significant murmur Gastrointestinal: soft generalised tenderness Musculoskeletal: no edema Neurological: normal sensation Psychiatric: A&O x 3 Dx/Plan (1) Abdominal pain Code(s): R10.9 - UNSPECIFIED ABDOMINAL PAIN Status: Acute Qualifiers: Abdominal location: epigastric Qualified Code(s): R10.13 - Epigastric pain Comment: post lap vinnie. Will discuss with dr Burnette, Ct unrevelaing yesterday, labs slightly better (2) DM2 (diabetes mellitus, type 2) Status: Chronic Qualifiers: Diabetes mellitus complication status: without complication Diabetes mellitus adjunct faculty for medical terminology insulin use: with halfway use Qualified Code(s): E11.9 - Type 2 diabetes mellitus without complications; Z79.4 - intermediate card tender (current) use of insulin; Z79.4 - [facility] (current) use of insulin; Z79.4 - [facility] ( current) use of insulin; Z79.4 - intermediate card tender (current) use of insulin (3) Acute calculous cholecystitis Code(s): K80.00 - CALCULUS OF GALLBLADDER W ACUTE CHOLECYST W/O OBSTRUCTION Status: Resolved Comment: s/p lap vinnie 04/03/2017. Path with chronic cholecystitis (4) Rectal cancer Code(s): C20 - MALIGNANT NEOPLASM OF RECTUM Status: Chronic - Plan * f/u gi plan for abd pain. ercp vs mrcp. f/u gi plan * d/c fentanyl * add low dose ativan * iv protonix * f/u cmp
[2017-04-06] MEDS: Lorazepam 2 MG/ML VIAL SLOW IVP PRN ×2 (12:28→20:51)
[2017-04-06] MEDS ORDERED: Propofol 200 MG/20 ML VIAL ONE (17:26)
[2017-04-06] MEDS: Gabapentin 100 MG CAP PO SCH (20:46)
[2017-04-07 04:37] LABS: #Monocytes 0.5 thou/uL (0.11-0.59); #Neutrophils 4.5 thou/uL (1.40-6.50); %Basophils 0.2 % (0.0-1.0); %Eosinophils 0.5 % (0.0-10.0); %Lymphocytes 16.2 % (21.0-51.0); %Monocytes 7.8 % (0.0-10.0); Hematocrit 31.9 % (36.0-47.0); Mean Platelet Volume 7.6 fL (7.4-10.4); Red Blood Cell (RBC) Count 3.44 mill/uL (4.20-5.40)
[2017-04-07 05:02] LABS: ALT (SGPT) 80 U/L (8-55); AST (SGOT) 21 U/L (5-34); Alkaline Phosphatase 170 U/L (40-150); Anion Gap 6 mmol/L (10-20); BUN (Urea Nitrogen) 8 mg/dL (9.8-20.1); Bilirubin, Total 0.8 mg/dL (0.2-1.2); Calc. Creatinine Clearance 164 mL/min (70-130); Calcium 8.8 mg/dL (7.8-10.44); Carbon Dioxide 28 mmol/L (23-31); Chloride 109 mmol/L (98-107); Estimated GFR-MDRD Greater than 90; Globulin 2.6 g/dL (2.4-3.5); Protein, Total 5.7 g/dL (6.0-8.3)
[2017-04-07] MEDS: D5 1/2 NS w/20 mEq KCL 1,000 ML IV SCH ×2 (06:05→23:11)
[2017-04-07] MEDS: cefOXitin 2 GM, Syringe 1 ML in Sterile Water 10 ML SLOW IVP SCH ×3 (06:06→21:47)
--- NOTE | 2017-04-07 07:49 | PDOC.PN ---
- Subjective Encounter Start Date: 04/07/17 Encounter Start Time: 09:00 Subjective: Patient with continued waves of ESTEE abdominal cramps, N/V - Objective MAR Reviewed: Yes Vital Signs & Weight: Vital Signs (12 hours) Temp Pulse Resp BP BP Pulse Ox 04/07/17 07:35 97.5 F L 70 16 148/66 H 96 04/07/17 00:00 98 F 66 22 H 132/64 98 04/06/17 20:49 72 189/77 H 04/06/17 20:46 72 189/77 H 04/06/17 20:00 99.9 F H 72 24 H 189/77 H 99 Weight Admit Weight 248 lb Weight 248 lb I&O: 04/06/17 04/07/17 04/08/17 06:59 06:59 06:59 Intake Total 1100 Output Total 25 Balance 1075 Result Diagrams: 04/07/17 04:07 04/07/17 04:07 Additional Labs: Accuchecks 04/07/17 04/06/17 04/06/17 06:23 20:58 15:34 POC Glucose 77 169 H 187 H 04/06/17 11:32 POC Glucose 260 H Phys Exam - Physical Examination moderate distress due to pain and Nausea, just got meds HEENT: moist MMs Respiratory: no wheezing, no rales, no rhonchi, clear to auscultation bilateral Cardiovascular: RRR, no significant murmur Gastrointestinal: soft, positive bowel sounds TTP ESTEE Neurological: non-focal, moves all 4 limbs Psychiatric: normal affect, A&O x 3 Dx/Plan (1) Abdominal pain Code(s): R10.9 - UNSPECIFIED ABDOMINAL PAIN Status: Acute Qualifiers: Abdominal location: epigastric Qualified Code(s): R10.13 - Epigastric pain Comment: post lap vinnie. EGD negative. Bilirubin normal and labs improving. Dr. Gil following. (2) DM2 (diabetes mellitus, type 2) Status: Chronic Qualifiers: Diabetes mellitus complication status: without complication Diabetes mellitus termination clerk insulin use: with detention use Qualified Code(s): E11.9 - Type 2 diabetes mellitus without complications; Z79.4 - truck terminal manager (current) use of insulin; Z79.4 - truck terminal manager (current) use of insulin; Z79.4 - truck terminal manager ( current) use of insulin; Z79.4 - truck terminal manager (current) use of insulin (3) Acute calculous cholecystitis Code(s): K80.00 - CALCULUS OF GALLBLADDER W ACUTE CHOLECYST W/O OBSTRUCTION Status: Resolved Comment: s/p lap vinnie 04/03/2017. Path with chronic cholecystitis (4) Rectal cancer Code(s): C20 - MALIGNANT NEOPLASM OF RECTUM Status: Chronic (5) Hypokalemia Code(s): E87.6 - HYPOKALEMIA Status: Acute Comment: replete via IV - Plan cont current plan of care, PT/OT, out of bed/ambulate, DVT proph w/SCDs Antiemetics, Toradol, limit opioids. Await further GI recs. * . - Discharge Day Encounter end time: 09:15
[2017-04-07] MEDS ORDERED: Potassium Chloride 20 MEQ/100 ML PREMIX BAG IVPB SCH (08:00)
[2017-04-07] MEDS ORDERED: Potassium Chloride 20 MEQ in Sodium Chloride 0.9% 250 ML 250 ML IVPB SCH (08:00)
[2017-04-07] MEDS: Ondansetron HCl/PF 4 MG/2 ML Vial IVP PRN (09:06)
[2017-04-07] MEDS: Furosemide 40 MG TAB PO SCH (09:07)
[2017-04-07] MEDS: Lisinopril 5 MG TAB PO SCH ×2 (09:07→21:00)
[2017-04-07] MEDS: Pantoprazole 40 MG VIAL IVP SCH (09:07)
[2017-04-07] MEDS: Ketorolac Tromethamine 30 MG/ML VIAL IVP PRN ×2 (09:10→17:39)
[2017-04-07] MEDS: Insulin Detemir 100 UNITS/ML 40 UNITS in Pre-Filled Syringe 1 EACH SC SCH ×2 (09:28→21:01)
[2017-04-07] MEDS: Promethazine HCl 25 MG/ML VIAL IM/IV PRN (10:19)
[2017-04-07] MEDS: Metoclopramide HCl 10 MG TAB PO SCH ×3 (12:00→21:00)
[2017-04-07] MEDS ORDERED: Lorazepam 2 MG/ML VIAL SLOW IVP SCH (12:45)
--- NOTE | 2017-04-07 20:05 | PRG ---
DATE OF SERVICE: 04/07/2017 SUBJECTIVE: Ms. Boo still had nausea and vomiting today. Her mental status has been better today but not completely back to normal and she has had some episodes of hallucinations. CT scan of the brain, which was negative for acute process yesterday. OBJECTIVE: VITAL SIGNS: Temperature 99.2, pulse 81, blood pressure ranges from 148/66-201/82. GENERAL: She is in no acute distress. She is responsive but sleepy. LUNGS: Clear to auscultation bilaterally. HEART: Regular rate and rhythm. ABDOMEN: Soft, tenderness in the epigastric region, but no guarding. Bowel sounds are present. EXTREMITIES: No lower extremity edema. LABORATORY DATA: White blood cell count 6.0, hemoglobin 10.4. Creatinine 0.6, bilirubin 0.8, AST 21 , ALT 80, alkaline phosphatase 170. IMPRESSION: Ongoing nausea, vomiting, and epigastric pain. She has had persistent symptoms despite cholecystectomy. Abdominal CT scans x2 have been negative. Her liver tests are showing improvement. The patient does believe she could follow through with MRI tomorrow and this is scheduled to be att empted again tomorrow. This is for MRCP to evaluate for retained biliary stone. RECOMMENDATIONS: 1. We will continue to follow the trend of her liver tests. 2. Await MRI results if she is able to follow through with that test. 3. Dr. Aburto will cover the weekend.
[2017-04-07] MEDS: Gabapentin 100 MG CAP PO SCH (21:00)
[2017-04-08] MEDS: Lorazepam 2 MG/ML VIAL SLOW IVP PRN (01:09)
[2017-04-08] MEDS: cefOXitin 2 GM, Syringe 1 ML in Sterile Water 10 ML SLOW IVP SCH ×3 (05:27→23:25)
--- NOTE | 2017-04-08 08:15 | PDOC.PN ---
- Subjective Encounter Start Date: 04/08/17 Encounter Start Time: 10:30 Subjective: Patient with persistent N/V overnight. Very sleepy right now from meds -: taken prior to getting MRI. - Objective MAR Reviewed: Yes Vital Signs & Weight: Vital Signs (12 hours) Temp Pulse Resp BP BP Pulse Ox 04/08/17 07:08 98.6 F 68 20 204/84 H 94 L 04/08/17 03:32 150/70 H 04/08/17 03:17 97.1 F L 67 12 210/88 H 98 04/07/17 23:16 98.8 F 77 16 125/53 L 95 04/07/17 21:00 81 04/07/17 20:44 140/60 Weight Admit Weight 248 lb Weight 248 lb I&O: 04/07/17 04/08/17 04/09/17 06:59 06:59 06:59 Intake Total 1100 2820 Output Total 25 Balance 1075 2820 Result Diagrams: 04/07/17 04:07 04/07/17 04:07 Additional Labs: Accuchecks 04/08/17 04/07/17 04/07/17 05:17 20:23 15:21 POC Glucose 212 H 213 H 182 H 04/07/17 12:02 POC Glucose 141 H Phys Exam - Physical Examination Constitutional: NAD Sleepy HEENT: moist MMs Respiratory: no wheezing, no rales, no rhonchi Cardiovascular: RRR, no significant murmur Gastrointestinal: soft, positive bowel sounds TTP ESTEE, mild guarding Neurological: non-focal, moves all 4 limbs Psychiatric: normal affect, A&O x 3 Dx/Plan (1) Abdominal pain Code(s): R10.9 - UNSPECIFIED ABDOMINAL PAIN Status: Acute Qualifiers: Abdominal location: epigastric Qualified Code(s): R10.13 - Epigastric pain Comment: post lap vinnie. EGD negative. Bilirubin normal and labs improving. Dr. Gil following. (2) DM2 (diabetes mellitus, type 2) Status: Chronic Qualifiers: Diabetes mellitus complication status: without complication Diabetes mellitus jail insulin use: with termite inspector use Qualified Code(s): E11.9 - Type 2 diabetes mellitus without complications; Z79.4 - [facility] (current) use of insulin; Z79.4 - bed bug exterminator (current) use of insulin; Z79.4 - [facility] ( current) use of insulin; Z79.4 - [facility] (current) use of insulin (3) Acute calculous cholecystitis Code(s): K80.00 - CALCULUS OF GALLBLADDER W ACUTE CHOLECYST W/O OBSTRUCTION Status: Resolved Comment: s/p lap vinnie 04/03/2017. Path with chronic cholecystitis (4) Rectal cancer Code(s): C20 - MALIGNANT NEOPLASM OF RECTUM Status: Chronic (5) Hypokalemia Code(s): E87.6 - HYPOKALEMIA Status: Acute Comment: replete via IV - Plan * .
[2017-04-08] MEDS: Metoclopramide HCl 10 MG TAB PO SCH ×4 (09:21→21:17)
[2017-04-08] MEDS: D5 1/2 NS w/20 mEq KCL 1,000 ML IV SCH ×2 (09:25→21:17)
[2017-04-08] MEDS: Ondansetron HCl/PF 4 MG/2 ML Vial IVP PRN (09:25)
[2017-04-08] MEDS: Pantoprazole 40 MG VIAL IVP SCH (09:34)
[2017-04-08] MEDS: Insulin Detemir 100 UNITS/ML 40 UNITS in Pre-Filled Syringe 1 EACH SC SCH ×2 (11:37→21:18)
[2017-04-08] MEDS: Lisinopril 5 MG TAB PO SCH ×2 (11:39→21:17)
[2017-04-08] MEDS: Furosemide 40 MG TAB PO SCH (11:39)
--- NOTE | 2017-04-08 15:16 | MRI ---
ABDOMEN MRI WITHOUT CONTRAST: Date: 04/08/17 HISTORY: Right upper quadrant pain. Evaluate for retained common bile duct stone. Patient underwent cholecyste ctomy on 04/03/17. TECHNIQUE: Abdomen MRI is performed without contrast. Evaluation is limited due patient motion. Contrast was not administered due to patient motion and limited vascular access. FINDINGS: There is appropriate signal intensity in the visualized solid organs. There is fluid signal intensity in the gallbladder fossa, likely representing postsurgical change. Bi le leak cannot be excluded. There is symmetric signal intensity of the kidneys. No evidence of hydronephrosis. Visualized alimentary canal is unremarkable. A MRCP demonstrates appropriate signal intensity in the central intrahepatic biliary system as well a s the common bile duct. There is no evidence of an intraluminal filling defect. There is no evidence of common bile duct dilatation. No evidence of intrahepatic biliary dilatation. Minimal perinephric fluid and minimal ascites adjacent to the posterior segment of the liver. IMPRESSION: 1. No MRI evidence of choledocholithiasis. 2. Fluid in the gallbladder fossa, presumed to be postoperative. If there is concern for biliary yash k, consider HIDA scan. POS: [facility]
[2017-04-08] MEDS: HumaLOG 300 UNITS/3 ML VIAL SC PRN (18:32)
--- NOTE | 2017-04-08 20:45 | PRG ---
DATE: 04/08/2017 HISTORY OF PRESENT ILLNESS: This is a 66-year-old Latin-English female with prior history of rectal cancer, status post resection. The patient underwent laparoscopic cholecystectomy with IOC by Dr. Burnette, few days ago. The patient was seen by Dr. Mike Gil because of abdominal pain, recurrent nausea and vomiting and dry heaves. She had an EGD done which was negative. Liver function tests are slightly elevated. However, the IOC was actually normal. It is not very clear if she has any retained stone. MRCP was ordered, but the patient has claustrophobia and did not want to have the MRCP done yesterday. However, she is willing to try today after giving some IV sedation. She is not having any more vomiting, but she is having dry heaves. She also has some abdominal pain. PHYSICAL EXAMINATION: GENERAL: Appears comfortable. VITAL SIGNS: Temperature 98 degrees Fahrenheit. Pulse is 72, blood pressure 132/57. CARDIOVASCULAR: First and second heart sounds normal. LUNGS: Clear to auscultation. ABDOMEN: Soft to palpate. She is mildly tender over the epigastric area. Overall, the exam is very benign. LABORATORY DATA: From today, blood sugar is 228 . She had an MRI of the abdomen shows no common bile duct stone. Does have some minimal fluid in the gallbladder fossa. There is no bile duct dilation. No filling defect seen. OVERALL IMPRESSION: No abnormal findings except for fluid in the gallbladder fossa and a bile leak is ruled out. We will plan for a HIDA scan to see if she has any bile leak. In the meantime, we would continue supportive care. MTDD
[2017-04-08] MEDS: Gabapentin 100 MG CAP PO SCH (21:17)
[2017-04-09 04:58] LABS: #Eosinphils 0.1 thou/uL (0.0-0.7); #Lymphocytes 1.3 thou/uL (1.20-3.40); #Monocytes 0.5 thou/uL (0.11-0.59); #Neutrophils 3.6 thou/uL (1.40-6.50); %Basophils 0.6 % (0.0-1.0); %Eosinophils 1.4 % (0.0-10.0); %Lymphocytes 23.3 % (21.0-51.0); %Monocytes 9.2 % (0.0-10.0); Hematocrit 37.3 % (36.0-47.0); White Blood Cell (WBC) Count 5.6 thou/uL (4.8-10.8)
[2017-04-09 05:22] LABS: Anion Gap 8 mmol/L (10-20); BUN (Urea Nitrogen) 10 mg/dL (9.8-20.1); Calc. Creatinine Clearance 138 mL/min (70-130); Calcium 8.6 mg/dL (7.8-10.44); Carbon Dioxide 29 mmol/L (23-31); Chloride 106 mmol/L (98-107); Estimated GFR-MDRD 82
[2017-04-09] MEDS: cefOXitin 2 GM, Syringe 1 ML in Sterile Water 10 ML SLOW IVP SCH ×3 (05:45→21:55)
[2017-04-09] MEDS: Pantoprazole 40 MG VIAL IVP SCH (07:46)
[2017-04-09] MEDS: D5 1/2 NS w/20 mEq KCL 1,000 ML IV SCH ×2 (07:46→19:51)
[2017-04-09] MEDS: Metoclopramide HCl 10 MG TAB PO SCH ×4 (07:46→19:52)
--- NOTE | 2017-04-09 10:28 | PDOC.PN ---
- Subjective Encounter Start Date: 04/09/17 Encounter Start Time: 07:00 Subjective: is getting hida scan now, no nausea or vomiting -: feels better this morning - Objective MAR Reviewed: Yes Vital Signs & Weight: Vital Signs (12 hours) Temp Pulse Resp BP Pulse Ox 04/09/17 08:09 98.7 F 61 18 135/56 L 93 L 04/09/17 08:00 98.7 F 61 18 93 L 04/09/17 00:14 98 F 65 18 116/57 L 94 L Weight Admit Weight 248 lb Weight 248 lb I&O: 04/08/17 04/09/17 04/10/17 06:59 06:59 06:59 Intake Total 2820 2800 Balance 2820 2800 Result Diagrams: 04/09/17 04:30 04/09/17 04:30 Additional Labs: Accuchecks 04/09/17 04/08/17 04/08/17 06:35 21:15 15:50 POC Glucose 161 H 149 H 228 H 04/08/17 11:14 POC Glucose 241 H Phys Exam - Physical Examination HEENT: PERRLA, moist MMs Neck: no JVD, supple Respiratory: no wheezing, no rales Cardiovascular: RRR, no significant murmur Gastrointestinal: soft, no distention, positive bowel sounds Musculoskeletal: no edema, pulses present Neurological: non-focal, moves all 4 limbs Psychiatric: A&O x 3 Dx/Plan (1) Nausea & vomiting Code(s): R11.2 - NAUSEA WITH VOMITING, UNSPECIFIED Status: Acute Qualifiers: Vomiting type: unspecified Comment: resolving (2) Chronic anemia Code(s): D64.9 - ANEMIA, UNSPECIFIED Status: Chronic (3) Abdominal pain Code(s): R10.9 - UNSPECIFIED ABDOMINAL PAIN Status: Acute Qualifiers: Abdominal location: epigastric Qualified Code(s): R10.13 - Epigastric pain Comment: post lap vinnie. EGD negative. Bilirubin normal and labs improving. Dr. Gil following. (4) DM2 (diabetes mellitus, type 2) Status: Chronic Qualifiers: Diabetes mellitus complication status: without complication Diabetes mellitus trust clerk insulin use: with long-term use Qualified Code(s): E11.9 - Type 2 diabetes mellitus without complications; Z79.4 - care home (current) use of insulin; Z79.4 - care home (current) use of insulin; Z79.4 - mat puncher ( current) use of insulin; Z79.4 - mat puncher (current) use of insulin (5) Acute calculous cholecystitis Code(s): K80.00 - CALCULUS OF GALLBLADDER W ACUTE CHOLECYST W/O OBSTRUCTION Status: Resolved Comment: s/p lap vinnie 04/03/2017. Path with chronic cholecystitis (6) Rectal cancer Code(s): C20 - MALIGNANT NEOPLASM OF RECTUM Status: Chronic Comment: has colostomy - Plan await HIDA scan results -: clinically improving -: may start diet if HIDA is clear for leak -: to amb as tolerated in hallway -: is on D51/2ns, reglan, morphine prn, levemir 40u bid * . Review of Systems - Medications/Allergies Allergies/Adverse Reactions: Allergies Allergy/AdvReac Type Severity Reaction Status Date / Time Sulfa (Sulfonamide Allergy Verified 12/28/16 11:36 Antibiotics) Medications: Current Medications Hydrocodone Bitart/Acetaminophen ([place] 7.5/325) 1 tab PO Q4H PRN PRN Reason: Mild Pain (1-3) Last Admin: 04/04/17 07:20 Dose: 1 tab Hydrocodone Bitart/Acetaminophen ([place] 7.5/325) 2 tab PO Q4H PRN PRN Reason: Moderate Pain (4-6) Carbamazepine (Tegretol Xr) 200 mg PO BID [facility] Last Admin: 04/08/17 21:00 Dose: 200 mg Dextrose/Water (Dextrose 50%) 25 gm SLOW IVP PRN PRN PRN Reason: Hypoglycemia Gabapentin (Neurontin) 100 mg PO [facility] Last Admin: 04/08/17 21:17 Dose: 100 mg Glucagon (Glucagon) 1 mg IM PRN PRN PRN Reason: Hypoglycemia Hydralazine HCl (Apresoline) 10 mg SLOW IVP Q4H PRN PRN Reason: SBP Greater Than 180 Last Admin: 04/06/17 20:49 Dose: 10 mg Dextrose/Water (D5w) 1,000 mls @ 0 mls/hr IV .Q0M PRN; As Directed PRN Reason: Hypoglycemia Insulin Detemir 40 units/ (Miscellaneous Medication) 0.4 mls @ 0 mls/hr SC BID [facility] PRN Reason: As Directed Last Admin: 04/08/17 21:18 Dose: 0.4 mls Cefoxitin Sodium 2 gm/ Syringe (1 ml/ Sterile Water) 11 mls @ 132 mls/hr SLOW IVP Q8HR [facility] Last Admin: 04/09/17 05:45 Dose: 11 mls Potassium Chloride/Dextrose/Sod Cl (D5 1/2 Ns W/20 Meq Kcl) 1,000 mls @ 100 mls /hr IV .Q10H [facility] Last Admin: 04/09/17 07:46 Dose: 1,000 mls Insulin Human Lispro (Humalog) 0 units SC .MODERATE SLIDING SC PRN PRN Reason: Moderate Correctional Scale Last Admin: 04/08/17 18:32 Dose: 4 unit Ketorolac Tromethamine (Toradol) 30 mg IVP Q6H PRN PRN Reason: Pain Stop: 04/10/17 07:05 Last Admin: 04/07/17 17:39 Dose: 30 mg Lisinopril (Zestril) 5 mg PO BID [facility] Last Admin: 04/08/17 21:17 Dose: 5 mg Lorazepam (Ativan) 1 mg SLOW IVP Q6H PRN PRN Reason: Agitation Last Admin: 04/08/17 01:09 Dose: 1 mg Metoclopramide HCl (Reglan) 10 mg PO [facility] Last Admin: 04/09/17 07:46 Dose: 10 mg Morphine Sulfate (Morphine) 2 mg SLOW IVP Q4H PRN PRN Reason: Moderate Pain (4-6) Last Admin: 04/05/17 08:50 Dose: 2 mg Morphine Sulfate (Morphine) 4 mg SLOW IVP Q1H PRN PRN Reason: .SEVERE PAIN Last Admin: 04/06/17 03:03 Dose: 4 mg Ondansetron HCl (Zofran Odt) 4 mg PO Q4H PRN PRN Reason: Nausea/Vomiting Ondansetron HCl (Zofran) 4 mg IVP Q6H PRN PRN Reason: Nausea/Vomiting Last Admin: 04/08/17 09:25 Dose: 4 mg Pantoprazole Sodium (Protonix) 40 mg IVP DAILY [facility] Last Admin: 04/09/17 07:46 Dose: 40 mg Pentoxifylline (Trental) 400 mg PO TID [facility] Last Admin: 04/08/17 21:00 Dose: 400 mg Promethazine HCl (Phenergan) 12.5 mg IM/IV Q2H PRN PRN Reason: Nausea/Vomiting Last Admin: 04/07/17 10:19 Dose: 12.5 mg Scopolamine (Transderm Scop) 1.5 mg TOP Q3D PRN PRN Reason: NAUSEA/VOMITING Last Admin: 04/05/17 12:37 Dose: 1.5 mg Sodium Chloride (Flush - Normal Saline) 10 ml IVF Q12HR [facility] Last Admin: 04/09/17 07:46 Dose: 10 ml Sodium Chloride (Flush - Normal Saline) 10 ml IVF PRN PRN PRN Reason: Saline Flush Last Admin: 04/06/17 15:42 Dose: 10 ml
[2017-04-09] MEDS: Lisinopril 5 MG TAB PO SCH ×2 (10:43→19:52)
[2017-04-09] MEDS: Insulin Detemir 100 UNITS/ML 40 UNITS in Pre-Filled Syringe 1 EACH SC SCH ×2 (10:44→19:53)
[2017-04-09] MEDS: HumaLOG 300 UNITS/3 ML VIAL SC PRN ×2 (11:42→17:23)
--- NOTE | 2017-04-09 13:05 | NM ---
HIDA SCAN: Date: 04/09/17 HISTORY: Postop cholecystectomy. Evaluate for bile leak. Reference made to preceding MRI abdomen. RADIOPHARMACEUTICAL: 5.3 mCi technetium-99m mebrofenin IV. FINDINGS: There is no obvious extra biliary collection of scintigraphic activity to confirm bile leak. Scintigr aphic activity is seen within the extrahepatic biliary system, as well as entering into bowel. There is homogeneous uptake within the liver. IMPRESSION: No scintigraphic activity to confirm bile leak. POS: [facility]
[2017-04-09] MEDS: HYDROcodone/Acetaminophen 7.5/325 mg Tablet PO PRN (14:30)
--- NOTE | 2017-04-09 15:40 | PRG ---
DATE OF SERVICE: 04/09/2017 SUBJECTIVE: Ms. Carolee Boo is a 66-year-old female who has had rectal cancer, statu s post radiation, status post AP resection and colostomy. The patient underwent laparoscopic cholecy stectomy by Dr. Sea Burnette, because of abdominal pain, nausea, and gallstones. The patient dev eloped abdominal pain, nausea, and vomiting and retching. She had an EGD done by Dr. Gil on Monday , which was basically negative. An MRCP done yesterday showed no common bile duct stone and common b ile duct size appeared normal. She did have small amount of free fluid in the gallbladder fossa. A HIDA scan was ordered. The HIDA scan was supposedly to be done this morning. The patient is actuall y feeling better. She appears comfortable. She feels hungry. She wants eat some solid food. PHYSICAL EXAMINATION: VITAL SIGNS: Afebrile, pulse is 70, blood pressure 114/64. CARDIOVASCULAR: Lungs within normal limits. ABDOMEN: Soft to palpate. Abdomen is actually nontender this morning. LABORATORY DATA: She has a normal CBC. WBC 5600. Her chemistry panel is actually normal. Sodium i s 139, potassium 3.8, chloride 106, bicarbonate 29, BUN is 10, creatinine 0.71. PLAN: 1. We will review the HIDA scan once it is done. 2. Advance diet as tolerated.
[2017-04-09] MEDS: Ketorolac Tromethamine 30 MG/ML VIAL IVP PRN (17:26)
[2017-04-09] MEDS: Gabapentin 100 MG CAP PO SCH (19:53)
--- NOTE | 2017-04-10 00:19 | PRG ---
DATE OF SERVICE: 04/09/2017 BRIEF FOLLOWUP NOTE SUBJECTIVE: This is a 66-year-old Latin-Citizen [place] female who has had laparoscopic cholecystectomy a f ew days ago. The patient has abdominal pain, nausea, and vomiting. She had an MRI done yesterday, w hich revealed no bile duct stone in bile duct. There is some small free fluid in the hepatic area an d the gallbladder fossa. She had a HIDA scan done today. The HIDA scan does not show any bile leak. PLAN: Increase p.o. intake and advance diet as tolerated.
[2017-04-10] MEDS: cefOXitin 2 GM, Syringe 1 ML in Sterile Water 10 ML SLOW IVP SCH ×2 (05:20→14:49)
[2017-04-10] MEDS: D5 1/2 NS w/20 mEq KCL 1,000 ML IV SCH (05:40)
[2017-04-10 06:19] LABS: ALT (SGPT) 41 U/L (8-55); AST (SGOT) 13 U/L (5-34); Alkaline Phosphatase 158 U/L (40-150); Bilirubin, Direct 0.3 mg/dL (0.1-0.3); Bilirubin, Total 0.5 mg/dL (0.2-1.2); Protein, Total 5.5 g/dL (6.0-8.3)
[2017-04-10] MEDS: Lisinopril 5 MG TAB PO SCH (08:43)
[2017-04-10] MEDS: Metoclopramide HCl 10 MG TAB PO SCH ×2 (08:43→12:09)
[2017-04-10] MEDS: Pantoprazole 40 MG VIAL IVP SCH (08:44)
--- NOTE | 2017-04-10 10:38 | PDOC.PN ---
- Subjective Encounter Start Date: 04/10/17 Encounter Start Time: 08:00 Subjective: no nausea or vomiting. Waiting for her breakfast -: no abd pain, is passing flatus -: is amb in room - Objective MAR Reviewed: Yes Vital Signs & Weight: Vital Signs (12 hours) Temp Pulse Resp BP Pulse Ox 04/10/17 08:43 63 04/10/17 07:47 98.5 F 63 18 175/73 H 97 Weight Admit Weight 248 lb Weight 248 lb I&O: 04/09/17 04/10/17 04/11/17 06:59 06:59 06:59 Intake Total 2800 1500 1240 Balance 2800 1500 1240 Result Diagrams: 04/09/17 04:30 04/09/17 04:30 Additional Labs: Accuchecks 04/10/17 04/09/17 04/09/17 05:55 19:52 17:08 POC Glucose 66 L 172 H 314 H 04/09/17 11:34 POC Glucose 258 H Phys Exam - Physical Examination HEENT: PERRLA, moist MMs Neck: no JVD, supple Respiratory: no wheezing, no rales Cardiovascular: RRR, no significant murmur Gastrointestinal: soft, non-tender, no distention, positive bowel sounds Musculoskeletal: no edema, pulses present Neurological: non-focal, moves all 4 limbs Psychiatric: A&O x 3 Dx/Plan (1) Nausea & vomiting Code(s): R11.2 - NAUSEA WITH VOMITING, UNSPECIFIED Status: Resolved Qualifiers: Vomiting type: unspecified (2) Chronic anemia Code(s): D64.9 - ANEMIA, UNSPECIFIED Status: Chronic (3) Abdominal pain Code(s): R10.9 - UNSPECIFIED ABDOMINAL PAIN Status: Acute Qualifiers: Abdominal location: epigastric Qualified Code(s): R10.13 - Epigastric pain Comment: post lap vinnie. EGD negative. Bilirubin normal and labs improving. Dr. Gil following. (4) DM2 (diabetes mellitus, type 2) Status: Chronic Qualifiers: Diabetes mellitus complication status: without complication Diabetes mellitus shelter insulin use: with salvage determiner use Qualified Code(s): E11.9 - Type 2 diabetes mellitus without complications; Z79.4 - intermodal truck driver (current) use of insulin; Z79.4 - intermodal truck driver (current) use of insulin; Z79.4 - intermodal truck driver ( current) use of insulin; Z79.4 - half-way (current) use of insulin (5) Acute calculous cholecystitis Code(s): K80.00 - CALCULUS OF GALLBLADDER W ACUTE CHOLECYST W/O OBSTRUCTION Status: Resolved Comment: s/p lap vinnie 04/03/2017. Path with chronic cholecystitis (6) Rectal cancer Code(s): C20 - MALIGNANT NEOPLASM OF RECTUM Status: Chronic Comment: has colostomy - Plan colostomy has liq stool in it -: may dc home if tolerating oral diet and amb in hallway -: Lft's are trending down -: Confirm with prior to discharge -: to reduce levemir to 20u bid, reglan prn for home use * . Review of Systems - Medications/Allergies Allergies/Adverse Reactions: Allergies Allergy/AdvReac Type Severity Reaction Status Date / Time Sulfa (Sulfonamide Allergy Verified 12/28/16 11:36 Antibiotics) Medications: Current Medications Hydrocodone Bitart/Acetaminophen ([place] 7.5/325) 1 tab PO Q4H PRN PRN Reason: Mild Pain (1-3) Last Admin: 04/09/17 14:30 Dose: 1 tab Hydrocodone Bitart/Acetaminophen ([place] 7.5/325) 2 tab PO Q4H PRN PRN Reason: Moderate Pain (4-6) Last Admin: 04/09/17 18:33 Dose: 2 tab Carbamazepine (Tegretol Xr) 200 mg PO BID [facility] Last Admin: 04/10/17 08:44 Dose: 200 mg Dextrose/Water (Dextrose 50%) 25 gm SLOW IVP PRN PRN PRN Reason: Hypoglycemia Gabapentin (Neurontin) 100 mg PO HS [facility] Last Admin: 04/09/17 19:53 Dose: 100 mg Glucagon (Glucagon) 1 mg IM PRN PRN PRN Reason: Hypoglycemia Hydralazine HCl (Apresoline) 10 mg SLOW IVP Q4H PRN PRN Reason: SBP Greater Than 180 Last Admin: 04/06/17 20:49 Dose: 10 mg Dextrose/Water (D5w) 1,000 mls @ 0 mls/hr IV .Q0M PRN; As Directed PRN Reason: Hypoglycemia Cefoxitin Sodium 2 gm/ Syringe (1 ml/ Sterile Water) 11 mls @ 132 mls/hr SLOW IVP Q8HR [facility] Last Admin: 04/10/17 05:20 Dose: 11 mls Potassium Chloride/Dextrose/Sod Cl (D5 1/2 Ns W/20 Meq Kcl) 1,000 mls @ 100 mls /hr IV .Q10H [facility] Last Admin: 04/10/17 05:40 Dose: 1,000 mls Insulin Human Lispro (Humalog) 0 units SC .MODERATE SLIDING SC PRN PRN Reason: Moderate Correctional Scale Last Admin: 04/09/17 17:23 Dose: 8 unit Lisinopril (Zestril) 5 mg PO BID [facility] Last Admin: 04/10/17 08:43 Dose: 5 mg Lorazepam (Ativan) 1 mg SLOW IVP Q6H PRN PRN Reason: Agitation Last Admin: 04/08/17 01:09 Dose: 1 mg Metoclopramide HCl (Reglan) 10 mg PO ACHS [facility] Last Admin: 04/10/17 08:43 Dose: 10 mg Morphine Sulfate (Morphine) 2 mg SLOW IVP Q4H PRN PRN Reason: Moderate Pain (4-6) Last Admin: 04/05/17 08:50 Dose: 2 mg Morphine Sulfate (Morphine) 4 mg SLOW IVP Q1H PRN PRN Reason: .SEVERE PAIN Last Admin: 04/06/17 03:03 Dose: 4 mg Ondansetron HCl (Zofran Odt) 4 mg PO Q4H PRN PRN Reason: Nausea/Vomiting Ondansetron HCl (Zofran) 4 mg IVP Q6H PRN PRN Reason: Nausea/Vomiting Last Admin: 04/08/17 09:25 Dose: 4 mg Pantoprazole Sodium (Protonix) 40 mg IVP DAILY [facility] Last Admin: 04/10/17 08:44 Dose: 40 mg Pentoxifylline (Trental) 400 mg PO TID [facility] Last Admin: 04/10/17 08:43 Dose: 400 mg Promethazine HCl (Phenergan) 12.5 mg IM/IV Q2H PRN PRN Reason: Nausea/Vomiting Last Admin: 04/07/17 10:19 Dose: 12.5 mg Scopolamine (Transderm Scop) 1.5 mg TOP Q3D PRN PRN Reason: NAUSEA/VOMITING Last Admin: 04/05/17 12:37 Dose: 1.5 mg Sodium Chloride (Flush - Normal Saline) 10 ml IVF Q12HR [facility] Last Admin: 04/10/17 08:45 Dose: 10 ml Sodium Chloride (Flush - Normal Saline) 10 ml IVF PRN PRN PRN Reason: Saline Flush Last Admin: 04/10/17 08:49 Dose: 10 ml
[2017-04-10] MEDS: HumaLOG 300 UNITS/3 ML VIAL SC PRN (12:19)
[2017-04-10] MEDS: hydrALAZINE 20 MG/ML VIAL SLOW IVP PRN (16:29)
[2017-04-10 16:32] VITALS: BP 183/77; TEMP 99
--- NOTE | 2017-04-10 18:35 | DIS ---
DATE OF ADMISSION: 04/03/2017 DATE OF DISCHARGE: 04/10/2017 DISCHARGE DISPOSITION: To home. PRIMARY DISCHARGE DIAGNOSES: 1. Status post cholecystectomy. 2. Nausea, vomiting, and abdominal pain resolved. 3. Elevated LFTs, receding. 4. Chronic anemia. 5. Diabetes mellitus type 2. 6. History of rectal cancer with colostomy. PROCEDURES DONE DURING HOSPITALIZATION: The patient has had laparoscopic cholecystectomy done by Dr. Burnette on 04/03/2017. Abdominal and pelvic CAT scan done on the after cholecystectomy on the showed intraperitoneal gas. No evidence of bowel obstruction. She has had upper endoscopy done on 2016, which was essentially normal. Random duodenal biopsies were obtained. Histopathology of the duodenum biopsy was unremarkable, no evidence of celiac sprue. Abdominal MRI done on the showed no MRI evidence of choledocholithiasis. HIDA scan done on the showed no evidence of bile leak , H&H 12 and 37, platelet count 240 on the . Liver enzymes: AST 13, ALT 41 , alkaline phosphatase 158, total bilirubin 0.5, this was this morning. Albumin is 3.0 and total bilirubin of 2.5 with AST of 183, ALT 217, and alkaline phosphatase of 176 on the . DISCHARGE MEDICATIONS: Aspirin 81 mg p.o. daily, Tegretol extended release 200 mg twice daily, Nexium 40 mg daily, Lasix 40 mg daily, gabapentin 100 mg p.o. at bedtime, Lantus 20 units subcu twice daily, lisinopril 5 mg twice daily, Reglan 10 mg p.o. a.c. and at bedtime p.r.n. for nausea or vomiting, Trental 400 mg p.o. 3 times daily, K-Dur 20 mEq p.o. daily. ALLERGIES: SULFA. INPATIENT CONSULTS: Dr. Swanson for Gastroenterology. BRIEF COURSE DURING HOSPITALIZATION: Patient initially got admitted on the with complaints of abdominal pain, nausea, and vomiting. She has had laparoscopic cholecystectomy done on the . Postop, patient continued to have nausea, vomiting, and abdominal pain with increasing LFTs. In view of this , she has had upper endoscopy done by Dr. Sam Gil, which did not reveal any acute abnormalities. She has had an MRCP done as well, which did not reveal choledocholithiasis. Her HIDA scan done showed no bile leak. The patient's nausea, vomiting, and abdominal pain has resolved. She is tolerating oral solid diet. She will be shortly discharged home if it is okay with Dr. Gil/Sky for Gastroenterology. She needs to follow up with her primary care physician in 1 week. Please note her Levemir dose has been reduced to 20 twice daily due to poor oral intake postoperatively. She is to check her fingerstick glucose, blood pressure and pulse daily and record on a sheet of paper to follow up with primary care physician to slowly increase her dosing on the medications. Please see face to face documentation on [facility] for the day of discharge. MTDD
== END 2017-04-10 17:06 | disposition home or self-care (01) | DRG 418 ==
LOC: ERS 22:09 → ONC 04-03 01:00 → OBSVTOIN 04-04 14:41
PROVIDERS: ADMIT Internal Medicine; ATTEND Internal Medicine
PROC: 0FT44ZZ Resection of Gallbladder, Percutaneous Endoscopic Approach (ICD-10-PCS; principal; 2017-04-03)
PROC: BF130ZZ Fluoroscopy of Gallbladder and Bile Ducts using High Osmolar Contrast (ICD-10-PCS; 2017-04-03)
PROC: 0DB98ZX Excision of Duodenum, Via Natural or Artificial Opening Endoscopic, Diagnostic (ICD-10-PCS; 2017-04-06)
DX: K80.12 Calculus of gallbladder with acute and chronic cholecystitis without obstruction (principal); Z68.42 Body mass index [BMI] 45.0-49.9, adult; E11.9 Type 2 diabetes mellitus without complications; K21.9 Gastro-esophageal reflux disease without esophagitis; D64.9 Anemia, unspecified; E87.6 Hypokalemia; Z85.048 Personal history of other malignant neoplasm of rectum, rectosigmoid junction, and anus; Z79.4 Long term (current) use of insulin; Z79.84 Long term (current) use of oral hypoglycemic drugs; Z79.82 Long term (current) use of aspirin; Z88.2 Allergy status to sulfonamides; Z93.3 Colostomy status; Z87.891 Personal history of nicotine dependence; E66.9 Obesity, unspecified
CPT/HCPCS: 36415; 36416; 47532; 70450; 71010; 74177; 74181; 76705; 78226; 80048; 80053; 80076; 82553; 83605; 83690; 83735; 84484; 85025; 88304; 88305; 93005; 93010; 96361; 96365; 96375; A4216; A9537; C9113; G8978-GP-CJ; G8979-GP-CJ; G8980-GP-CJ; J0360; J0694; J1100; J1200; J1610; J1642; J1815; J1885; J2001; J2060; J2250; J2270; J2274; J2405; J2550; J2704; J3010; J3480; J7050; Q9961

== ENCOUNTER 2017-08-03 10:31 | Outpatient (CLI) | payer MEDICARE, BC ==
[2017-08-03] MEDS ORDERED: ISOVUE-370 76%-LOCM 1 ML ONE (16:23)
== END 2017-08-03 10:32 | disposition home or self-care (01) ==
LOC: BICCT 10:31
PROVIDERS: ATTEND Surgery
DX: R60.0 Localized edema; M53.3 Sacrococcygeal disorders, not elsewhere classified; Z85.048 Personal history of other malignant neoplasm of rectum, rectosigmoid junction, and anus
CPT/HCPCS: 72193

== ENCOUNTER 2018-01-26 07:38 | Outpatient (CLI) | payer MEDICARE, BC ==
[2018-01-26] MEDS ORDERED: ISOVUE-370 76%-LOCM 1 ML ONE (10:30)
--- NOTE | 2018-01-26 11:35 | CT ---
CT ABDOMEN AND PELVIS WITH CONTRAST: Date: 01/26/18 COMPARISON: 04/04/17. HISTORY: Parastomal hernia. Pain around the colostomy for a few months. History of rectal cancer. TECHNIQUE: Multiple contiguous axial images were obtained in a CT of the abdomen and pelvis with contrast. PO co ntrast was administered. Coronal reformats were performed. FINDINGS: The patient is status post cholecystectomy and hysterectomy. There is an ostomy in the left lower ashley drant of the abdomen. There is a parastomal hernia containing nonobstructed small bowel. There is sof t tissue density in the presacral space. A small amount of air is also seen in this location. This ma y represent a small Marlin's pouch, or it could potentially represent scarring and air in the ren cral space from prior surgery. The liver, kidneys, adrenal glands, spleen, and pancreas are unremarkable. No free air, free fluid, o r stranding changes are seen in the abdomen or pelvis. A small midline ventral hernia is present containing nonobstructed bowel. The fascial defect appears to measure 3.8 cm in width. No abdominal or pelvic lymphadenopathy are seen. Atherosclerotic calcifications are seen in the aorta . IMPRESSION: 1. Parastomal hernia containing nonobstructed bowel. 2. Soft tissue density and air in the presacral space. This may represent a short Marlin's pouch. A small amount of scarring and potential fluid collection containing air is also a possibility. Corre late with history of low anterior resection versus APR. POS: [facility]
== END 2018-01-26 07:39 | disposition home or self-care (01) ==
LOC: BICCT 07:38
PROVIDERS: ATTEND Surgery
DX: K43.5 Parastomal hernia without obstruction or gangrene (principal)
CPT/HCPCS: 74177; 82565

== ENCOUNTER 2018-04-01 17:02 | Emergency (ER) | payer MEDICARE, BC ==
[2018-04-01] MEDS ORDERED: Ondansetron ODT 4 MG TAB ONE (17:18)
[2018-04-01 18:20] LABS: #Eosinphils 0.1 thou/uL (0.0-0.7); #Monocytes 0.4 thou/uL (0.11-0.59); #Neutrophils 5.7 thou/uL (1.40-6.50); %Basophils 0.2 % (0.0-1.0); %Eosinophils 0.8 % (0.0-10.0); %Lymphocytes 13.5 % (21.0-51.0); %Monocytes 5.8 % (0.0-10.0); %Neutrophils 79.7 % (42.0-75.0); Hemoglobin 12.7 g/dL (12.0-16.0); Mean Corpuscular HGB CONC 34.3 g/dL (32.0-36.0); Mean Corpuscular Hemoglobin 30.7 pg (27.0-31.0); Mean Corpuscular Volume 89.6 fL (78.0-98.0); Mean Platelet Volume 8.8 fL (7.4-10.4); Platelet Count 194 thou/uL (130-400); RBC Distribution Width 12.1 % (11.5-14.5); Red Blood Cell (RBC) Count 4.13 mill/uL (4.20-5.40); White Blood Cell (WBC) Count 7.2 thou/uL (4.8-10.8)
[2018-04-01 18:42] LABS: ALT (SGPT) 25 U/L (8-55); AST (SGOT) 21 U/L (5-34); Albumin 3.6 g/dL (3.4-4.8); Alkaline Phosphatase 109 U/L (40-150); Anion Gap 14 mmol/L (10-20); BUN (Urea Nitrogen) 19 mg/dL (9.8-20.1); Bilirubin, Total 0.2 mg/dL (0.2-1.2); Calc. Creatinine Clearance 0 mL/min (70-130); Calcium 9.7 mg/dL (7.8-10.44); Carbon Dioxide 21 mmol/L (23-31); Chloride 105 mmol/L (98-107); Estimated GFR-MDRD 67; Globulin 2.7 g/dL (2.4-3.5); Glucose 281 mg/dL (80-115); Potassium 4.3 mmol/L (3.5-5.1); Protein, Total 6.3 g/dL (6.0-8.3); Sodium 136 mmol/L (136-145)
[2018-04-01 18:52] LABS: CKMB 2.6 ng/mL (0-6.6); Troponin I Less than 0.010 ng/mL (< 0.028)
--- NOTE | 2018-04-01 19:21 | CT ---
CT BRAIN WITHOUT CONTRAST: Comparison: 04-06-17 History: Dizziness, headache, vertigo. Technique: Multiple contiguous axial images were obtained in a CT of the brain without contrast. FINDINGS: Intracranial vascular calcifications are seen. The brain is normal in morphology and attenuation with out focal lesions or confluent areas of infarction. There is no evidence of hydrocephalus, intracrani al hemorrhage, or extraaxial fluid collections. The calvarium and overlying soft tissues are unremarkable. Visualized paranasal sinuses and mastoid a ir cells are well aerated. IMPRESSION: No evidence of acute intracranial abnormality. POS: [facility]
== END 2018-04-01 19:27 | disposition home or self-care (01) ==
LOC: ERS 17:02
DX: R42 Dizziness and giddiness (principal); E11.9 Type 2 diabetes mellitus without complications; K21.9 Gastro-esophageal reflux disease without esophagitis; I10 Essential (primary) hypertension; Z87.891 Personal history of nicotine dependence; Z85.038 Personal history of other malignant neoplasm of large intestine; Z79.4 Long term (current) use of insulin; Z79.82 Long term (current) use of aspirin; Z79.899 Other long term (current) drug therapy
CPT/HCPCS: 36415; 70450; 80053; 82553; 84484; 85025; 93005; Q0162

== ENCOUNTER 2018-06-23 20:10 | Emergency (ER) | payer MEDICARE, BC ==
[2018-06-23 22:19] LABS: #Eosinphils 0.1 thou/uL (0.0-0.7); #Lymphocytes 1.5 thou/uL (1.20-3.40); #Monocytes 0.5 thou/uL (0.11-0.59); #Neutrophils 5.5 thou/uL (1.40-6.50); %Eosinophils 1.1 % (0.0-10.0); %Lymphocytes 20.2 % (21.0-51.0); %Monocytes 5.9 % (0.0-10.0); %Neutrophils 72.9 % (42.0-75.0); Mean Corpuscular HGB CONC 31.5 g/dL (32.0-36.0); Mean Corpuscular Hemoglobin 29.4 pg (27.0-31.0); Mean Corpuscular Volume 93.5 fL (78.0-98.0); Platelet Count 218 thou/uL (130-400); RBC Distribution Width 12.5 % (11.5-14.5); Red Blood Cell (RBC) Count 4.41 mill/uL (4.20-5.40); White Blood Cell (WBC) Count 7.6 thou/uL (4.8-10.8)
--- NOTE | 2018-06-23 22:28 | RAD ---
LEFT HIP TWO VIEW 06/23/18 HISTORY: Pain . COMPARISON: None. FINDINGS: Exam is limited due to poor penetration. No acute displaced fracture or malalignment. Mild degenerati ve change with acetabular osteophyte formation. Left obturator ring is intact. IMPRESSION: No acute displaced fracture or malalignment. POS: [facility]
[2018-06-23 22:57] LABS: Anion Gap 14 mmol/L (10-20); BUN (Urea Nitrogen) 16 mg/dL (9.8-20.1); Calc. Creatinine Clearance 0 mL/min (70-130); Calcium 9.6 mg/dL (7.8-10.44); Carbon Dioxide 25 mmol/L (23-31); Chloride 102 mmol/L (98-107); Estimated GFR-MDRD 70; Glucose 277 mg/dL (80-115); Potassium 4.2 mmol/L (3.5-5.1); Sodium 137 mmol/L (136-145)
[2018-06-23] MEDS ORDERED: Acetaminophen 500 MG TAB ONE (23:05)
--- NOTE | 2018-06-23 23:08 | ULT ---
ULTRASOUND LEFT LOWER EXTREMITY VENOUS DOPPLER 06/23/18 HISTORY: Pain. COMPARISON: None. TECHNIQUE: Real time sullivan scale, color doppler and spectral analysis of the left lower extremity venous system w as performed. The common femoral, femoral, proximal portion of the greater saphenous and deep femoral veins as well as the popliteal and posterior tibial veins are interrogated. There is normal flow, augmentation and compression. There is decreased flow within the left posterior tibial artery. IMPRESSION: 1. No deep venous thrombosis. 2. Incidental note of mild decreased velocity within the left posterior tibial artery. POS: [facility]
== END 2018-06-24 00:11 | disposition home or self-care (01) ==
LOC: ERS 20:10
DX: G58.9 Mononeuropathy, unspecified (principal); E11.9 Type 2 diabetes mellitus without complications; K21.9 Gastro-esophageal reflux disease without esophagitis; I10 Essential (primary) hypertension; Z87.891 Personal history of nicotine dependence; Z79.899 Other long term (current) drug therapy; Z79.4 Long term (current) use of insulin; Z79.82 Long term (current) use of aspirin
CPT/HCPCS: 36415; 80048; 85025; 85379

== ENCOUNTER 2018-08-03 19:50 | Emergency (ER) | payer MEDICARE, BC ==
[2018-08-03] MEDS ORDERED: Morphine 4 MG/ML VIAL ONE (23:01)
== END 2018-08-03 23:50 | disposition home or self-care (01) ==
LOC: ERS 19:50
DX: I73.9 Peripheral vascular disease, unspecified (principal); G57.93 Unspecified mononeuropathy of bilateral lower limbs; K21.9 Gastro-esophageal reflux disease without esophagitis; I10 Essential (primary) hypertension; Z87.891 Personal history of nicotine dependence; Z79.4 Long term (current) use of insulin; Z79.899 Other long term (current) drug therapy; Z79.82 Long term (current) use of aspirin
CPT/HCPCS: 96372; J2270

== ENCOUNTER 2018-08-11 21:15 | Observation (INO) | payer MEDICARE, BC ==
[2018-08-11] MEDS ORDERED: Ondansetron PF 4 MG/2 ML Vial ONE (22:08)
[2018-08-11] MEDS ORDERED: Morphine 4 MG/ML VIAL ONE (22:08)
[2018-08-11 22:26] LABS: #Eosinphils 0.1 thou/uL (0.0-0.7); #Lymphocytes 1.3 thou/uL (1.20-3.40); #Monocytes 0.3 thou/uL (0.11-0.59); #Neutrophils 6.5 thou/uL (1.40-6.50); %Basophils 0.1 % (0.0-1.0); %Eosinophils 0.7 % (0.0-10.0); %Lymphocytes 15.7 % (21.0-51.0); %Monocytes 4.2 % (0.0-10.0); %Neutrophils 79.4 % (42.0-75.0); Hemoglobin 13.6 g/dL (12.0-16.0); Mean Corpuscular HGB CONC 32.7 g/dL (32.0-36.0); Mean Corpuscular Hemoglobin 30.4 pg (27.0-31.0); Mean Corpuscular Volume 93.1 fL (78.0-98.0); Platelet Count 240 thou/uL (130-400); Red Blood Cell (RBC) Count 4.46 mill/uL (4.20-5.40); White Blood Cell (WBC) Count 8.1 thou/uL (4.8-10.8)
[2018-08-11 22:48] LABS: ALT (SGPT) 20 U/L (8-55); AST (SGOT) 19 U/L (5-34); Albumin 4.2 g/dL (3.4-4.8); Alkaline Phosphatase 123 U/L (40-150); Anion Gap 17 mmol/L (10-20); BUN (Urea Nitrogen) 21 mg/dL (9.8-20.1); Bilirubin, Total Less than 0.2 mg/dL (0.2-1.2); Calc. Creatinine Clearance 0 mL/min (70-130); Calcium 9.8 mg/dL (7.8-10.44); Carbon Dioxide 23 mmol/L (23-31); Chloride 105 mmol/L (98-107); Estimated GFR-MDRD 68; Glucose 183 mg/dL (80-115); Lipase 37 U/L (8-78); Potassium 4.6 mmol/L (3.5-5.1); Protein, Total 7.2 g/dL (6.0-8.3); Sodium 140 mmol/L (136-145)
[2018-08-11 23:51] LABS: Bilirubin Negative (Negative); Blood, Urine Negative (Negative); Clarity CLEAR (Clear); Glucose, Urine (Dipstick) Negative (Negative); Leukocyte Negative (Negative); Nitrite Negative (Negative); Protein, Urine (Dipstick) Negative (Neg-Trace); Specific Gravity, Urine 1.016 (1.002-1.036); Urobilinogen 0.2 mg/dL (0.2-1.0)
[2018-08-12] MEDS ORDERED: Morphine 4 MG/ML VIAL ONE ×2 (01:01→02:32)
[2018-08-12] MEDS ORDERED: Ondansetron PF 4 MG/2 ML Vial ONE (03:26)
[2018-08-12] MEDS ORDERED: Haloperidol Lactate 5 MG/ML VIAL ONE (05:02)
[2018-08-12] MEDS ORDERED: diphenhydrAMINE 50 MG/ML VIAL ONE (05:02)
[2018-08-12 07:30] VITALS: BMI 40.3
--- NOTE | 2018-08-12 08:33 | CT ---
PRELIMINARY REPORT/[facility]/EMERGENCY AFTER HOURS PROCEDURE: EXAM: CT Abdomen and Pelvis With Contrast EXAM DATE/TIME: 08/12/2018 12:51 AM CLINICAL HISTORY: 67 years old, female; Pain; Abdominal pain; Acute; Patient HX: Thom presents to ed C/O abdm pain to ll q. PT reports she has HX of hernia. PT reports after she sneezed she began to feel pain where her her rené is. PT also reports she presented to ed last week for leg pain that was onset two months ago and was dx home. PT followed up with pcp and vascular surgeon and was dx home both times. PT reports she was also seen at the [facility] and had a CT scan done. PT reports the pain is still persistent. PT reports pain to the calf and lower back. TECHNIQUE: Imaging protocol: Axial computed tomography images of the abdomen and pelvis with intravenous contras t. Coronal reformatted images were created and reviewed. COMPARISON: No relevant prior studies available. FINDINGS: Lower thorax: No acute findings. ABDOMEN: Liver: Normal. No mass. Gallbladder and bile ducts: Prior cholecystectomy. Pancreas: Normal. No ductal dilation. Spleen: Normal. No splenomegaly. Adrenals: Normal. No mass. Kidneys and ureters: Normal. No hydronephrosis. Stomach and bowel: Prior distal colectomy. Left lower quadrant colostomy. No bowel wall thickening or intestinal obstruction. Appendix: Appendix not visualized. No evidence of appendicitis. PELVIS: Bladder: Unremarkable as visualized. Reproductive: Unremarkable as visualized. ABDOMEN and PELVIS: Intraperitoneal space: No pneumoperitoneum or abscess. Bones/joints: No acute fracture. No dislocation. Soft tissues: Multiple ventral abdominal wall hernias including a parastomal hernia containing loops of large and small bowel. No resulting obstruction or strangulation. No abnormal wall hematoma. Vasculature: Normal. No abdominal aortic aneurysm. Lymph nodes: Normal. No enlarged lymph nodes. IMPRESSION: No acute findings. Thank you for allowing us to participate in the care of your patient. Dictated and Authenticated by: Rebel Castaneda MD 08/12/2018 2:01 AM Central Time ([place] & [place]) FINAL REPORT CT ABDOMEN AND PELVIS: IMPRESSION: I agree with the preliminary report provided by [facility]. No definite acute CT abnormality is evident. There is a left lower quadrant parastomal hernia containing unobstructed loops of small bowel, which has been stable since 01/26/18. There is a midline anterior abdominal wall hernia containing unobstructed loop of colon. The gallbladder is surgically absent. The liver, spleen, pancreas, adrenal glands, and kidneys are no rmal appearing. There are scattered vascular calcifications. The changes of a prior APR and partial colectomy are aga in noted. No free fluid is evident. Osseous structures are unchanged. POS: [facility]
[2018-08-12] MEDS ORDERED: Famotidine/PF 20 mg/2ml Vial SLOW IVP SCH (09:00)
[2018-08-12] MEDS ORDERED: Sodium Chloride 0.9% 1,000 ML IV SCH (09:30)
[2018-08-12] MEDS: Sodium Chloride 0.9% 1,000 ML IV SCH ×2 (10:41→16:15)
[2018-08-12 16:59] VITALS: BP 144/67; TEMP 97.5
[2018-08-12] MEDS ORDERED: traMADol HCl 50 MG TAB PO SCH (18:00)
--- NOTE | 2018-08-12 18:30 | CON ---
DATE OF CONSULTATION: CHIEF COMPLAINT: Left leg pain and episode of left lower quadrant abdominal pain. HISTORY OF PRESENT ILLNESS: The patient is a 67-year-old female underwent abdominoperineal resection for distal rectal cancer in June 2016. Post procedure, she developed a peristomal hernia, which has been stable. She reports about a 1 month history of left leg pain primarily in the calf. She says that she was going to come in to have that further evaluated when she sneezed and felt a little more pain in her hernia area. She says that is better, but her leg still hurts. Colostomy has been working fine. PAST MEDICAL HISTORY: Significant for rectal cancer, diabetes, and morbid obesity. PAST SURGICAL HISTORY: Hysterectomy, abdominoperineal resection, MediPort, laparoscopic cholecystectomy. She has had an MRCP, EGD, HIDA scan. MEDICATIONS: Include: 1. Lantus. 2. Metformin. 3. Humalog. 4. Nexium. 5. Pantoprazole. 6. Carbamazepine. 7. Lasix. 8. Aspirin. 9. Potassium. 10. Lisinopril. 11. Tylenol No. 3. PHYSICAL EXAMINATION: VITAL SIGNS: Temperature 98.4, pulse 50, blood pressure 109/51, and BMI of 40.3. GENERAL: She is morbidly obese female, in no apparent distress. HEENT: No jaundice. LUNGS: Clear. HEART: Regular rate and rhythm. ABDOMEN: Obese. She has colostomy in the left lower quadrant. There is an obvious peristomal hernia that reduces partially. It is nontender. Her ostomy is working well. She has a palpable femoral pulse on the left. She has a palpable popliteal pulse on the left, but she has a very faint dorsalis pedal pulse and no posterior tibial pulse is palpable. There is no evidence of ulcerations or impending limb loss. When you dorsiflex her foot, she experiences excruciating pain in her calf. LABORATORY DATA: Her white count is 8.1, hemoglobin and hematocrit are 13 and 40, platelet count 240. Electrolytes are fine. Glucose is 183. Liver function tests normal. Vascular ultrasound shows no DVT, but there is some decreased flow in the left posterior tibial artery. Her CT scan shows multiple abdominal hernias, peristomal hernia, no obstruction. No change since December 2017. ASSESSMENT: Stable ventral hernias in a morbidly obese female with high risk of recurrence for repair. PLAN: Further evaluation by Vascular Surgery regarding her leg pain. Job ID: [id number]
--- NOTE | 2018-08-12 23:43 | DIS ---
DATE OF SERVICE: DISCHARGE DIAGNOSES: As of the following; 1. Abdominal pain. 2. Nausea. 3. Sinus bradycardia with Wenckebach. HOSPITAL COURSE: The patient is a 67-year-old female who initially came into the hospital after she heard a pop after sneezing around her abdominal area. She has a history of colon cancer status post colon resection with colostomy. The patient in the ER did undergo a CT of abdomen and pelvis, which did not indicate any acute abnormalities such as strangulation or any dilation. Surgery was consulted and Surgery did combine to see the patient. The patient stated that she was nauseated after she was given pain medications. The patient was able to tolerate food without any difficulties. While the patient was in the hospital, she was noted to have bradycardia of 38 and 48. I did talk with the patient. She denied any chest pain or chest pressure. Denied any shortness of breath. However, she has had one or two dizzy spells once a week; however, no syncopal episodes. At this time, I did review her previous EKG and comparing it to this time's EKG, it indicates a type 2 second-degree block. I also curb-sided Cardiology, who recommended outpatient follow up with the railroad switchman. I have provided the patient with a railroad switchman's name and asked her to follow up with the railroad switchman and her primary care as an outpatient. The patient and family understands. I also told her that if she does have syncopal episode or her symptoms worsens to come into the ER for further evaluation. The patient also complained of chronic left lower calf cramping, which has been going on. She is supposed to follow up with a neurologist as an outpatient. MEDICATIONS: Her medications are as of the following; 1. Metformin 1000 b.i.d. 2. Pentoxifylline 400 t.i.d. 3. Baclofen 10 b.i.d. 4. Tramadol 50 q.6 hours p.r.n. 5. Lasix 40 mg daily. 6. Aspirin 81 mg daily. 7. Insulin 20 units in the morning and 80 units at night. 8. Carbamazepine 200 mg b.i.d. 9. Gabapentin up to mg t.i.d. ALLERGIES: SHE IS ALLERGIC TO SULFONAMIDES. PAST MEDICAL HISTORY: As of the following; 1. She has a history of diabetes. 2. She has a history of colon cancer status post colon resection. 3. She has a history of reflux. PAST SURGICAL HISTORY: She has had an abdominoperineal resection. She has a Mediport placement and she had a partial hysterectomy and she has also had a partial colectomy with colostomy. FAMILY HISTORY: No history of heart disease or cancer. SOCIAL HISTORY: Denies any alcohol use, drug use, or smoking history. She lives at home with her children. REVIEW OF SYSTEMS: All negative except for the ones mentioned above. PHYSICAL EXAMINATION: VITAL SIGNS: As of the following; temperature of 98.5, heart rate of 68, respirations 18, 96% on room air, blood pressure 144/67. GENERAL: She is awake, alert, and oriented x3. Does not appear in distress. CV: S1, S2 present. No murmurs, rubs, or gallops. HEENT: Normocephalic, atraumatic. No lymphadenopathy noted. ABDOMEN: Soft and nontender. Bowel sounds are present x2. She does have a colostomy bag. LUNGS: Clear to auscultation. No rhonchi or wheezes noted. EXTREMITIES: No edema. Pedal pulses are present x2. SKIN: Warm to touch. No rashes or lesions noted. NEUROLOGIC: No focal deficits noted. NECK: Supple without any lymphadenopathy or JVD. LABORATORY RESULTS: As of the following; WBCs of 8.1, hemoglobin of 13.6, hematocrit of 41.6, platelets of 240. Chemistry; sodium of 140, potassium of 4.6, BUN of 21, creatinine of 0.84. Her LFTs were normal. She also as I mentioned, had a CT of abdomen and pelvis, which did not indicate any acute abnormalities. ASSESSMENT AND PLAN: The patient is a 67-year-old female who presents to the hospital with complaints of abdominal pain after hearing a pop. 1. Abdominal pain. CT did not indicate any acute abnormalities. We will continue to monitor. Surgery has evaluated this patient and her pain has resolved. She is eating. No acute abnormalities. 2. Sinus bradycardia. She does have a Wenckebach pause. She is currently asymptomatic, just gets dizzy at times. I have told her to follow up with Cardiology. I have provided her with Cardiology's number and also I have told her to follow up with her primary care doctor. 3. Left lower extremity cramping. She has had this ongoing issue for the past 2 or 3 months. She is supposed to see a neurologist as an outpatient. Her whole family and her were updated on the plan. Job ID: [id number]
[2018-08-13] MEDS ORDERED: Prevnar 13-Val Conj/PF 0.5 ML SYRINGE IM ONE (09:00)
--- NOTE | 2018-08-13 22:47 | EKG ---
Test Reason : LADHA Blood Pressure : / mmHG Vent. Rate : 048 BPM Atrial Rate : 070 BPM P-R Int : 000 ms QRS Dur : 078 ms QT Int : 436 ms P-R-T Axes : 053 020 042 degrees QTc Int : 389 ms with 2nd degree SA block (Mobitz I) Low voltage QRS Borderline ECG When compared with ECG of 01-APR-2018 17:20, Current undetermined rhythm precludes rhythm comparison, needs review Confirmed by Estevan VARMA ([id number]) on 08/13/2018 10:46:46 PM Referred By: Confirmed By:Estevan VARMA
== END 2018-08-12 19:25 | disposition home or self-care (01) ==
LOC: ERS 21:15 → ONC 08-12 04:20
PROVIDERS: ADMIT Internal Medicine; ATTEND Internal Medicine
DX: R10.32 Left lower quadrant pain (principal); R00.1 Bradycardia, unspecified; M79.662 Pain in left lower leg; I44.1 Atrioventricular block, second degree; E11.9 Type 2 diabetes mellitus without complications; K94.09 Other complications of colostomy; K43.9 Ventral hernia without obstruction or gangrene; K21.9 Gastro-esophageal reflux disease without esophagitis; E66.01 Morbid (severe) obesity due to excess calories; Z68.41 Body mass index [BMI] 40.0-44.9, adult; Z90.49 Acquired absence of other specified parts of digestive tract; Z79.4 Long term (current) use of insulin; Z79.82 Long term (current) use of aspirin; Z79.899 Other long term (current) drug therapy
CPT/HCPCS: 74177; 80053; 81003; 82607; 82962; 83690; 83735; 85025; 93005; 96361; 96374; 96375 ×2; 96376; 99285; G0378 ×2; 36416; 93010; J1200; J1630; J2270; J2405; S0028

== ENCOUNTER 2018-09-07 09:55 | Outpatient (CLI) | payer MEDICARE, BC ==
--- NOTE | 2018-09-07 11:26 | MRI ---
MRI Lumbar Spine WO Con History: [M 54.16 radiculopathy] Comparison: None. Findings: The aortic contour is not aneurysmal. No retroperitoneal adenopathy. Mild bilateral symmetr ic posterior paraspinal muscle atrophy. No hydronephrosis. Hemangioma is present T12 vertebral body. Modic type II endplate changes at L1/L2. Intraosseous hemangioma of L5. Perineural cysts along the ri ght exiting S2 nerve root and left exiting S3 nerve root. No acute fracture. Levels are as follows: L1/L2: Mild disc desiccation. Circumferential discussed by complex. Mild effacement of the ventral CS F space. Spinal canal measures approximately 9 mm. No significant neural foraminal narrowing. L2/L3: Circumferential disc bulge. Mild facet arthrosis. Mild effacement of the ventral CSF space. Sp inal canal measures approximately 7 mm. Moderate bilateral neural foraminal narrowing. There is abutment of the left exiting nerve root. L3/L4: Small bilateral subforaminal posterior disc osteophyte complexes. Mild bilateral neural forami nal narrowing. L4/L5: Mild disc desiccation. Moderate bilateral subphrenic posterior disc osteophyte complexes. Mode rate bilateral neural foraminal narrowing. There is abutment of the traversing bilateral L5 nerve roots. L5/S1: Circumferential disc bulge greatest in the left subfrontal and extraforaminal zone with associ ated osteophyte. Moderate bilateral neural foraminal narrowing. There is abutment of the traversing left S1 nerve root. Impression: Moderate spondylosis of the lumbar spine as described.
--- NOTE | 2018-09-07 11:36 | RAD ---
Right hip 2 views HISTORY: Right hip pain. FINDINGS: There are degenerative changes are present. No acute fracture, dislocation or bony destruction is christian ntified. IMPRESSION: Right hip osteoarthritis
--- NOTE | 2018-09-07 11:38 | RAD ---
Left hip 2 views: HISTORY: Left hip pain, left is worse than right. FINDINGS: Degenerative changes are present. No fracture, dislocation or bony destruction is identified. No sign ificant interval change is seen since 06/23/2018. IMPRESSION: Left hip osteoarthritis
== END 2018-09-07 09:56 | disposition home or self-care (01) ==
LOC: BICMRI 09:55
DX: M47.26 Other spondylosis with radiculopathy, lumbar region (principal); M25.551 Pain in right hip; M25.552 Pain in left hip; M16.0 Bilateral primary osteoarthritis of hip
CPT/HCPCS: 72148

== ENCOUNTER 2018-11-07 08:25 | Outpatient (CLI) | payer MEDICARE, BC ==
[2018-11-07 09:45] LABS: #Eosinphils 0.1 thou/uL (0.0-0.7); #Lymphocytes 1.4 thou/uL (1.20-3.40); #Monocytes 0.3 thou/uL (0.11-0.59); #Neutrophils 4.6 thou/uL (1.40-6.50); %Basophils 0.3 % (0.0-1.0); %Eosinophils 1.3 % (0.0-10.0); %Lymphocytes 20.9 % (21.0-51.0); %Monocytes 5.3 % (0.0-10.0); %Neutrophils 72.1 % (42.0-75.0); Hemoglobin 12.6 g/dL (12.0-16.0); Mean Corpuscular HGB CONC 31.5 g/dL (32.0-36.0); Mean Corpuscular Volume 95.1 fL (78.0-98.0); Mean Platelet Volume 7.4 fL (7.4-10.4); Platelet Count 235 thou/uL (130-400); RBC Distribution Width 12.7 % (11.5-14.5); Red Blood Cell (RBC) Count 4.21 mill/uL (4.20-5.40); White Blood Cell (WBC) Count 6.4 thou/uL (4.8-10.8)
[2018-11-07 09:48] LABS: PTT 23.3 SEC (22.9-36.1)
[2018-11-07 10:05] LABS: ALT (SGPT) 16 U/L (8-55); AST (SGOT) 10 U/L (5-34); Albumin 3.9 g/dL (3.4-4.8); Alkaline Phosphatase 117 U/L (40-150); Anion Gap 14 mmol/L (10-20); BUN (Urea Nitrogen) 16 mg/dL (9.8-20.1); Bilirubin, Total 0.3 mg/dL (0.2-1.2); Calc. Creatinine Clearance 0 mL/min (70-130); Calcium 9.4 mg/dL (7.8-10.44); Carbon Dioxide 26 mmol/L (23-31); Cardiac Risk 3.9 (Less than 4.5); Chloride 107 mmol/L (98-107); Cholesterol 171 mg/dl (< 200 Desired); Estimated GFR-MDRD 86; Globulin 2.3 g/dL (2.4-3.5); Glucose 86 mg/dL (80-115); HDL Cholesterol 44 mg/dL (>60 Neg Risk); LDL Cholesterol, Calculated 113 mg/dL; Protein, Total 6.2 g/dL (6.0-8.3); Sodium 143 mmol/L (136-145); Triglycerides 72 mg/dL (Less than 150)
== END 2018-11-07 08:26 | disposition home or self-care (01) ==
LOC: LABBT 08:25
PROVIDERS: ATTEND Internal Medicine Cardiovascular Disease
DX: Z01.812 Encounter for preprocedural laboratory examination (principal); R94.39 Abnormal result of other cardiovascular function study
CPT/HCPCS: 80053; 80061; 85025; 85610; 85730

== ENCOUNTER 2018-11-09 06:50 | Day surgery (SDC) | payer MEDICARE, BC ==
[2018-11-07 08:56] VITALS: BMI 38.1
[2018-11-09] MEDS ORDERED: Lidocaine 1% (PF) 30 ML VIAL ONE (07:15)
[2018-11-09] MEDS ORDERED: Fentanyl 100 MCG/2 ML VIAL ONE (08:19)
[2018-11-09] MEDS ORDERED: Midazolam HCl 2 mg/2 ml Vial ONE (08:19)
[2018-11-09] MEDS ORDERED: Heparin 10,000 UNITS/1 ML VIAL ONE (09:01)
[2018-11-09] MEDS ORDERED: Nitroglycerin 100MG/250ML BOT 250 ML ONE (09:02)
[2018-11-09] MEDS ORDERED: Adenosine 6 MG/2 ML VIAL ONE (09:20)
[2018-11-09] MEDS ORDERED: traMADol HCl 50 MG TAB ONE (09:55)
[2018-11-09] MEDS ORDERED: traMADol HCl 50 MG TAB PO PRN (10:14)
[2018-11-09] MEDS ORDERED: Fentanyl 100 MCG/2 ML VIAL SLOW IVP PRN (10:15)
[2018-11-09] MEDS ORDERED: Iopamidol 370 76% 100 ML VIAL ONE (15:48)
--- NOTE | 2018-11-12 16:47 | EKG ---
Test Reason : POST STENTS X 3 Blood Pressure : / mmHG Vent. Rate : 068 BPM Atrial Rate : 088 BPM P-R Int : 000 ms QRS Dur : 078 ms QT Int : 406 ms P-R-T Axes : 000 039 066 degrees QTc Int : 431 ms Sinus rhythm with 2nd degree A-V block (Mobitz I) Abnormal ECG Confirmed by ANA CHINO ([id number]) on 11/12/2018 4:47:38 PM Referred By: MICAELA Confirmed By:ANA CHINO
== END 2018-11-09 14:47 | disposition home or self-care (01) ==
LOC: CCL 06:50
PROVIDERS: ATTEND Internal Medicine Cardiovascular Disease
PROC: 4A023N7 Measurement of Cardiac Sampling and Pressure, Left Heart, Percutaneous Approach (ICD-10-PCS; principal; 2018-11-09)
PROC: B2111ZZ Fluoroscopy of Multiple Coronary Arteries using Low Osmolar Contrast (ICD-10-PCS; 2018-11-09)
PROC: B2161ZZ Fluoroscopy of Right and Left Heart using Low Osmolar Contrast (ICD-10-PCS; 2018-11-09)
DX: I25.10 Atherosclerotic heart disease of native coronary artery without angina pectoris (principal); E11.9 Type 2 diabetes mellitus without complications; Z87.891 Personal history of nicotine dependence; Z88.2 Allergy status to sulfonamides; Z79.4 Long term (current) use of insulin; Z79.899 Other long term (current) drug therapy
CPT/HCPCS: 36416; 85347; 92928; 93005; 93458; 93798; 99152; 99153; C1769; C1876; C1887; J0153; J1644; J2001; J2250; J3010

== ENCOUNTER 2018-11-22 02:47 | Observation (INO) | payer MEDICARE, BC ==
[2018-11-22 03:42] LABS: #Eosinphils 0.1 thou/uL (0.0-0.7); #Monocytes 0.6 thou/uL (0.11-0.59); #Neutrophils 6.9 thou/uL (1.40-6.50); %Basophils 0.4 % (0.0-1.0); %Eosinophils 0.8 % (0.0-10.0); %Lymphocytes 12.1 % (21.0-51.0); %Monocytes 6.5 % (0.0-10.0); %Neutrophils 80.3 % (42.0-75.0); Hemoglobin 12.4 g/dL (12.0-16.0); Mean Corpuscular HGB CONC 33.7 g/dL (32.0-36.0); Mean Corpuscular Hemoglobin 31.9 pg (27.0-31.0); Mean Corpuscular Volume 94.9 fL (78.0-98.0); Mean Platelet Volume 7.9 fL (7.4-10.4); Platelet Count 224 thou/uL (130-400); RBC Distribution Width 12.4 % (11.5-14.5); Red Blood Cell (RBC) Count 3.89 mill/uL (4.20-5.40); White Blood Cell (WBC) Count 8.6 thou/uL (4.8-10.8)
[2018-11-22 04:05] LABS: ALT (SGPT) 10 U/L (8-55); AST (SGOT) 12 U/L (5-34); Albumin 3.6 g/dL (3.4-4.8); Alkaline Phosphatase 116 U/L (40-150); Anion Gap 16 mmol/L (10-20); BUN (Urea Nitrogen) 24 mg/dL (9.8-20.1); Bilirubin, Total 0.2 mg/dL (0.2-1.2); Calc. Creatinine Clearance 0 mL/min (70-130); Calcium 9.9 mg/dL (7.8-10.44); Carbon Dioxide 23 mmol/L (23-31); Chloride 106 mmol/L (98-107); Estimated GFR-MDRD 70; Globulin 2.5 g/dL (2.4-3.5); Glucose 197 mg/dL (80-115); Potassium 4.3 mmol/L (3.5-5.1); Protein, Total 6.1 g/dL (6.0-8.3); Sodium 141 mmol/L (136-145)
[2018-11-22 07:06] LABS: Troponin I 0.021 ng/mL (< 0.028)
[2018-11-22] MEDS ORDERED: Sodium Chloride 0.65% Nasal 44 ML BOT EA NARE PRN (08:22)
[2018-11-22] MEDS ORDERED: Ondansetron PF 4 MG/2 ML Vial IVP PRN (08:22)
[2018-11-22] MEDS ORDERED: Loratadine 10 MG TAB PO PRN (08:22)
[2018-11-22] MEDS ORDERED: Ondansetron ODT 4 MG TAB PO PRN (08:22)
[2018-11-22] MEDS ORDERED: Acetaminophen 325 MG TAB PO PRN (08:22)
[2018-11-22] MEDS ORDERED: Nitroglycerin 0.4 MG TAB (25 Tab Bottle) SL PRN (08:22)
[2018-11-22] MEDS ORDERED: Cepastat Lozenges 1 LOZ PO PRN (08:22)
[2018-11-22] MEDS ORDERED: Bisacodyl 10 MG SUPP PR PRN (08:22)
[2018-11-22] MEDS ORDERED: Calcium Carbonate 500 MG ChewTAB PO PRN (08:22)
[2018-11-22] MEDS ORDERED: Diabetic Tussin 200 MG/10 ML UDCUP PO PRN (08:22)
[2018-11-22] MEDS ORDERED: Senokot S 8.6-50 MG TAB PO PRN (08:22)
[2018-11-22] MEDS ORDERED: hydrALAZINE 20 MG/ML VIAL SLOW IVP PRN (08:22)
[2018-11-22] MEDS ORDERED: HYDROcodone/Acetaminophen 5/325 mg Tablet PO PRN (08:22)
[2018-11-22] MEDS ORDERED: Loperamide HCl 2 MG CAP PO PRN (08:22)
[2018-11-22] MEDS ORDERED: Zolpidem Tartrate 5 MG TAB PO PRN (08:22)
[2018-11-22] MEDS ORDERED: Dextrose 5% in Water 1,000 ML IV PRN (08:24)
[2018-11-22] MEDS ORDERED: Dextrose 50% Abboject 50 ML SYRINGE SLOW IVP PRN (08:24)
[2018-11-22] MEDS ORDERED: HumaLOG 300 UNITS/3 ML VIAL SC PRN ×2 (08:24)
--- NOTE | 2018-11-22 09:01 | CT ---
CTA THORAX UTILIZING IV CONTRAST WITH PE PROTOCOL AND 3D REFORMATTED IMAGING: Date: 11/22/18 COMPARISON: None. FINDINGS: No central or segmental pulmonary embolus is evident. There are prominent coronary artery calcificati ons. No confluent air space opacity or pleural effusion is demonstrated. There is a 4 mm pulmonary no dule within the lateral right middle lobe. No pleural effusion is evident. No enlarged lymph nodes ar e evident. There is a left chest wall port. There is fatty infiltration of the liver. Gallbladder is surgically absent. No acute osseous abnormality is evident. IMPRESSION: 1. No central or segmental pulmonary embolus is evident. 2. 4 mm right middle lobe pulmonary nodule. 3. Fatty liver. 4. Cholecystectomy. POS: BH
--- NOTE | 2018-11-22 09:09 | RAD ---
CHEST 1 VIEW: INDICATION: Chest pain. COMPARISON: 04/03/2017. FINDINGS: Lungs are clear. Heart size is within normal limits. There is left chest wall port. No acute osseo us abnormality is evident. IMPRESSION: No acute cardiopulmonary abnormality. POS: BH
[2018-11-22] MEDS: Aspirin 81 mg Enteric Coated Tablet PO SCH (09:41)
[2018-11-22] MEDS: Lisinopril 10 MG TAB PO SCH (09:42)
[2018-11-22] MEDS: Furosemide 40 MG TAB PO SCH (09:42)
[2018-11-22] MEDS: Potassium Chloride 20 MEQ TAB PO SCH (09:42)
[2018-11-22] MEDS: Gabapentin 300 MG CAP PO SCH ×2 (09:42→20:13)
[2018-11-22] MEDS: Famotidine 20 MG TAB PO SCH ×2 (09:42→20:12)
[2018-11-22] MEDS: TICAGRELOR 90 MG TABLET PO SCH ×2 (09:43→20:14)
[2018-11-22 10:09] VITALS: BMI 39.8
[2018-11-22 10:42] LABS: Troponin I Less than 0.010 ng/mL (< 0.028)
[2018-11-22] MEDS ORDERED: ISOVUE-370 76%-LOCM 1 ML ONE (11:14)
[2018-11-22] MEDS ORDERED: Baclofen 10 MG TAB PO PRN (11:40)
--- NOTE | 2018-11-22 12:00 | DIS ---
DATE OF ADMISSION: 11/22/2018 DATE OF DISCHARGE: 11/22/2018 DISCHARGE DISPOSITION: Home. PRIMARY DISCHARGE DIAGNOSIS: Chest pain, ruled out acute coronary syndrome. SECONDARY DISCHARGE DIAGNOSES: History of colon cancer, coronary artery disease, diabetes type 2, obesity, chronic low back pain, gastroesophageal reflux disease. PRIMARY PROCEDURE/OPERATION: None. RADIOLOGICAL INVESTIGATION: 1. Chest x-ray. 2. CT angiography. SIGNIFICANT LABORATORY DATA: CBC, BMP, cardiac enzyme negative. DISCHARGE MEDICATIONS: 1. Tramadol 50 mg one or two tablets q.6 hourly p.r.n. 2. Aspirin 81 mg p.o. daily. 3. Baclofen 10 mg b.i.d. p.r.n. 4. Tegretol XR 200 mg b.i.d. 5. Lasix 40 mg daily. 6. Neurontin 600 mg b.i.d. 7. Lantus 15 units subcu b.i.d. 8. Lispro insulin as per sliding scale. 9. Lisinopril 10 mg daily. 10. Metformin 1000 mg b.i.d. 11. Trental 400 mg t.i.d. 12. Potassium chloride 20 mEq p.o. daily. 13. Brilinta 90 mg p.o. b.i.d. CONTRAINDICATION: None. CODE STATUS: Full code. INPATIENT RAW FINISH MILL OPERATOR: Cardiology. TEST RESULTS PENDING ON DISCHARGE: None. ALLERGIES: SULFA DRUGS. DISCHARGE PLAN: Posthospital, the patient will follow up with primary care physician, Dr. Jasen Montague. HOSPITAL COURSE: A 68-year-old female with above-mentioned medical problem, who was admitted for chest pain. Her electrocardiogram was unremarkable. We are suspecting gastroesophageal reflux disease. Her D-dimer was elevated and CT angio negative for PE. She had pulmonary nodule and that is why, we advised her to repeat a CT scan as an outpatient basis. Her primary care physician should arrange repeat CT scan for followup on pulmonary nodule. Cardiology consulted and if they are okay, then we will consider discharging her home later on today. At this point, cardiac enzymes negative. The patient is asymptomatic and she will continue all her previous medications. Job ID: [id number]
--- NOTE | 2018-11-22 12:00 | HP ---
HISTORY OF PRESENT ILLNESS: A 68-year-old female with past medical history of coronary artery disease, who had recently cardiac catheterization done on November 09, 2018, by Dr. Hooper and the patient had bare-metal stent placed in mid LAD and distal LAD as well as PCI was performed. The patient was discharged home on aspirin and Brilinta, which she was taking regularly without any missing dose. She came to emergency room last night with complaint of chest pain. The patient reports that chest pain started before going to bed, which was substernal without any association of shortness of breath, but she felt mild nausea and mild diaphoresis. Pain was persistent about 5 x 10 in intensity up until she arrived to emergency room and after that her pain reduced. She denies any palpitation. She was experiencing herself as heartburn, but she did not have any burning discomfort. She denies any epigastric pain. She denies any melena or hematochezia. She denies any vomiting. She does not have any relation of discomfort with food, respiration, or activity. Today, in the emergency room, she had CT angiography because of elevated D-dimer, but the CT angio showed no pulmonary embolism. It showed incidental pulmonary nodule, estephania liver. Chest x-ray was unremarkable. Routine blood test was unremarkable including cardiac enzymes were negative. When I saw this patient at that time, she was pain free. REVIEW OF SYSTEMS: CONSTITUTIONAL: Negative for weight loss or gain, ability to conduct usual activities. SKIN: Negative for rash, itching. EYES: Negative for double vision, pain. ENT/MOUTH: Negative for nose bleeding, neck stiffness, pain, tenderness. CARDIOVASCULAR: Negative for palpitations, dyspnea on exertion, orthopnea. RESPIRATORY: Negative for shortness of breath, wheezing, cough, hemoptysis, fever or night sweats. GASTROINTESTINAL: Negative for poor appetite, abdominal pain, heartburn, nausea, vomiting, constipation, or diarrhea. GENITOURINARY: Negative for urgency, frequency, dysuria, nocturia. MUSCULOSKELETAL: Negative for pain, swelling. NEUROLOGIC/PSYCHIATRIC: Negative for anxiety, depression. ALLERGY/IMMUNOLOGIC: Negative for skin rash, bleeding tendency. Please see my HPI for pertinent positives and negatives. All other review of systems reviewed and negative except as mentioned in HPI. PAST MEDICAL HISTORY: History of colon cancer, treated with surgery and radiation; gastroesophageal reflux disease; hypertension; diabetes, type 2; coronary artery disease; and dyslipidemia. PAST SURGICAL HISTORY: Colectomy, hysterectomy, and cardiac catheterization with stent placement. PAST PSYCHIATRIC HISTORY: Reviewed and negative. SOCIAL HISTORY: The patient denies any tobacco, alcohol, or illicit drug abuse. FAMILY HISTORY: No strong family history of premature coronary artery disease, stroke, or cancer. ALLERGIES: SULFA DRUGS. CURRENT HOME MEDICATIONS: 1. Tramadol 50 mg one or two tablets q.6 hourly p.r.n. 2. Aspirin 81 mg daily. 3. Baclofen 10 mg b.i.d. p.r.n. 4. Tegretol XR 200 mg b.i.d. 5. Lasix 40 mg daily. 6. Neurontin 600 mg b.i.d. 7. Lantus 50 units subcu b.i.d. 8. Lispro insulin as per sliding scale. 9. Lisinopril 10 mg daily. 10. Metformin 1000 mg b.i.d. 11. Trental 400 mg p.o. t.i.d. 12. Potassium chloride 20 mEq p.o. daily. 13. Brilinta 90 mg p.o. b.i.d. ALLERGIES: SULFA DRUGS. PHYSICAL EXAMINATION: VITAL SIGNS: On arrival, blood pressure 165/62, pulse 79, respiratory rate 20, temperature 98.5, and saturation 96% on room air. Weight 100.7 kg. GENERAL: The patient is currently alert, awake, in no obvious acute distress. HEENT: Head; normocephalic, atraumatic. Eyes; pupils are round and reactive to light. Extraocular muscle intact. ENT; oropharynx within normal limits. Moist mucous membranes. No oral lesion. No pharyngeal erythema. No exudate. NECK: Supple. No JVD. No thyromegaly. No carotid bruit. No jugular venous distention. LUNGS: Clear to auscultation without any rhonchi or rales. CARDIAC: S1 and S2. Regular without any murmur. No gallop. No rub. ABDOMEN: Soft. Bowel sounds present. Nontender. Nondistended. No organomegaly. No mass. No suprapubic tenderness. BACK: Unremarkable. No CVA tenderness. EXTREMITIES: Upper extremity, passive movement of all joints are normal. Lower extremity, no edema. No calf tenderness. SKIN: No skin rash. HEMATOLOGICAL SYSTEM: No lymphadenopathy. NEUROLOGIC: Nonfocal examination. SIGNIFICANT LABORATORY DATA: EKG showing normal sinus rhythm, nonspecific ST-T changes. Chest x-ray based on my review no acute cardiopulmonary process. CT angiography done in the emergency room, which showed no evidence of pulmonary embolism, incidental pulmonary nodule, fatty liver, and cholecystectomy. CBC; WBC 8.6, hemoglobin 12.4, and platelet 224. D-dimer 3.52. Sodium 141, potassium 4.3, chloride 106, carbon dioxide 23, anion gap 16, BUN 24, creatinine 0.81, glucose 197, and calcium 9.9. LFT; AST 12, ALT 10, alkaline phosphatase 116, and albumin 3.6. Cardiac enzyme negative x3. ASSESSMENT AND PLAN: 1. Chest pain. The patient's chest pain description is most likely gastrointestinal related with gastroesophageal reflux disease. Clinically, does not suspect any pericarditis. Electrocardiogram is not consistent with pericarditis. She does have negative cardiac enzyme x3, so in-stent restenosis is unlikely given the patient is taking medication on regular basis. At this point, the patient is chest pain free and her troponins are negative and cardiogram is nonspecific. We will get opinion from Dr. Hooper and after that, we will consider discharging her home. She will continue aspirin 81 mg daily, Brilinta 90 mg twice daily. 2. Coronary artery disease with a recent stent. Continue aspirin 81 mg p.o. daily, Brilinta 90 mg p.o. b.i.d., and lisinopril 10 mg p.o. daily. 3. Hypertension. Continue lisinopril 10 mg p.o. daily. 4. Gastroesophageal reflux disease. We will continue Pepcid 20 mg p.o. b.i.d. 5. Diabetes, type 2. We will hold metformin because of a CT angiography, but we will resume that metformin after 48 hours. Continue insulin as per sliding scale protocol. 6. Chronic low back pain. The patient will continue her chronic pain medication including gabapentin, tramadol, and baclofen upon discharge. 7. Deep venous thrombosis prophylaxis, not needed because we are expecting discharge in today. 8. Gastrointestinal prophylaxis. Pepcid 20 mg p.o. b.i.d. 9. Code status: The patient is full code. The patient does not have any surrogate decision maker. 10. Disposition plan, based on clinical course and Cardiology recommendation. Plan of care discussed with the patient in detail. Job ID: [id number]
[2018-11-22] MEDS ORDERED: Lidocaine 2% Viscous Solution 10 ML, Aluminum & Magnesium Hydroxide 30 ML SSW SCH (15:45)
--- NOTE | 2018-11-22 15:47 | CON ---
DATE OF CONSULTATION: REASON FOR CONSULTATION: Atypical chest pain. HISTORY OF PRESENT ILLNESS: Ms. Boo is a 68-year-old woman who is a patient of Dr. Kimo Hooper. She recently underwent stent placement 2 weeks ago. This was to the LAD. She originally presented with acid reflux type symptoms. It was in the lower chest, upper abdominal region. The pain lasted for several hours. She states she has had acid reflux in the past, but has not been taking her medication. The pain also seems to be reproducible with pressing on the lower chest upper abdomen. PAST MEDICAL HISTORY: See previous note. PHYSICAL EXAMINATION: GENERAL: The patient is a pleasant female who is in no acute distress. The patient appears their stated age. VITAL SIGNS: Blood pressure 129/59, pulse 61, temp 96. NEUROLOGIC: The patient is alert and oriented x3 with no focal neurologic deficits. HEENT: Sclerae without icterus. Mouth has moist mucous membranes with normal pallor. NECK: No JVD. Carotid upstroke brisk. No bruits bilaterally. LUNGS: Clear to auscultation with unlabored respirations. BACK: No scoliosis or kyphosis. CARDIAC: Regular rate and rhythm with normal S1 and S2. No S3 or S4 noted. No significant rubs, murmurs, thrills, or gallops noted throughout the precordium. PMI is not displaced. There is no parasternal heave. ABDOMEN: Soft, nontender, nondistended. No peritoneal signs present. No hepatosplenomegaly. No abnormal striae. EXTREMITIES: 2+ femoral and 2+ dorsalis pedis pulses. No cyanosis, clubbing, or edema. SKIN: No gross abnormalities. PERTINENT LABORATORY DATA: Creatinine 0.8, hemoglobin 12.4. EKG normal sinus rhythm, normal EKG. Troponin negative. IMPRESSION: 1. Atypical chest pain. 2. Coronary artery disease. 3. Status post stent placement. RECOMMENDATIONS: She is currently on Pepcid. She may need PPI instead of H2 nataliya. We will give her now and see if her symptoms improve. Her symptoms did not appear to be cardiac. They are also reproducible. Job ID: [id number]
[2018-11-22] MEDS: Insulin Glargine 50 UNITS in Pre-Filled Syringe 1 EACH SC SCH (22:23)
[2018-11-23 08:21] VITALS: BP 153/67; TEMP 97.6
[2018-11-23] MEDS: TICAGRELOR 90 MG TABLET PO SCH (08:38)
[2018-11-23] MEDS: Aspirin 81 mg Enteric Coated Tablet PO SCH (08:38)
[2018-11-23] MEDS: Potassium Chloride 20 MEQ TAB PO SCH (08:38)
[2018-11-23] MEDS: Furosemide 40 MG TAB PO SCH (08:38)
[2018-11-23] MEDS: Gabapentin 300 MG CAP PO SCH (08:38)
[2018-11-23] MEDS: Lisinopril 10 MG TAB PO SCH (08:39)
[2018-11-23] MEDS: Famotidine 20 MG TAB PO SCH (08:39)
[2018-11-23] MEDS: Insulin Glargine 50 UNITS in Pre-Filled Syringe 1 EACH SC SCH (11:28)
--- NOTE | 2018-11-23 14:35 | DIS ---
DATE OF ADMISSION: 11/22/2018 DATE OF DISCHARGE: 11/23/2018 Please consider this as a progress note as well. DISCHARGE DISPOSITION: Home. PRIMARY DISCHARGE DIAGNOSIS: Chest pain, ruled out acute coronary syndrome. SECONDARY DISCHARGE DIAGNOSES: Coronary artery disease, diabetes type 2, gastroesophageal reflux disease, obesity with BMI 40, chronic low back pain. PRIMARY PROCEDURE/OPERATION: None. RADIOLOGICAL INVESTIGATION: Chest x-ray, normal. CT angio, negative for PE. SIGNIFICANT LABORATORY DATA: Hemoglobin 12.4. D-dimer 3.52. Cardiac enzyme negative x3. Creatinine 0.81. BMP and LFT normal. DISCHARGE MEDICATIONS: 1. Tramadol 50 mg one or two tablets q.6 hourly p.r.n. 2. Aspirin 81 mg daily. 3. Baclofen 10 mg b.i.d. p.r.n. 4. Tegretol XR 200 mg b.i.d. 5. Lasix 40 mg daily. 6. Neurontin 600 mg b.i.d. 7. Insulin glargine 50 units subcu b.i.d. 8. Lispro insulin as per sliding scale. 9. Lisinopril 10 mg daily. 10. Metformin 1000 mg p.o. b.i.d. 11. Trental 400 mg p.o. t.i.d. 12. Potassium chloride 20 mEq p.o. daily. 13. Brilinta 90 mg p.o. b.i.d. as directed. 14. Protonix 40 mg p.o. daily. CONTRAINDICATION: None. CODE STATUS: Full code. INPATIENT PLANT OPERATOR/SHIFT SUPERVISOR: Oj Che MD. TEST RESULTS PENDING ON DISCHARGE: None. ALLERGIES: SULFA DRUGS. DISCHARGE PLAN: Posthospital, the patient will follow up with primary care physician Dr. Jasen Montague and Dr. Hooper, principal data architect as instructed. HOSPITAL COURSE: A 68-year-old female with above-mentioned medical problem, who was admitted by me for chest pain. Her chest pain description was atypical. It was more sounding gastroesophageal reflux disease. Her D-dimer was elevated, but CT angio was negative for PE. Her EKG was unremarkable and cardiac enzymes were negative. Telemetry remained unremarkable. She had recently cardiac cath and stent placed and that is why she did not require any more testing. We consulted Cardiology and they recommended to continue to treat acid reflux. On discharge, we added Protonix therapy. Rest of medication will be continued as per previous. She will follow up with primary care physician and primary principal data architect. I have seen and examined the patient at bedside today. PHYSICAL EXAMINATION: VITAL SIGNS: Today, temperature 97.6, pulse 71, respiratory rate 20, saturation 96% on room air, blood pressure 153/67, weight 220 pounds. GENERAL: The patient is currently alert, awake, and in no acute distress. LUNGS: Clear to auscultation without any rhonchi. CARDIAC: S1, S2. Regular without any murmur. ABDOMEN: Soft and benign without any tenderness. EXTREMITIES: No edema. NEUROLOGIC: Nonfocal examination. Overall, the patient is medically stable for discharge today. Job ID: [id number]
== END 2018-11-23 12:30 | disposition home or self-care (01) ==
LOC: ERS 02:47 → 2SW 05:53
PROVIDERS: ADMIT Hospitalist; ATTEND Hospitalist
DX: R07.89 Other chest pain (principal); I25.10 Atherosclerotic heart disease of native coronary artery without angina pectoris; I10 Essential (primary) hypertension; E11.9 Type 2 diabetes mellitus without complications; K21.9 Gastro-esophageal reflux disease without esophagitis; E66.9 Obesity, unspecified; G89.29 Other chronic pain; M54.9 Dorsalgia, unspecified; Z68.41 Body mass index [BMI] 40.0-44.9, adult; Z79.4 Long term (current) use of insulin; Z79.82 Long term (current) use of aspirin; Z79.899 Other long term (current) drug therapy; Z88.2 Allergy status to sulfonamides
CPT/HCPCS: 71045; 71275; 80053; 82962 ×2; 84484 ×2; 85025; 85379; 93005; 99285; G0378 ×3; 36415; 36416; J1815; Q9966

== ENCOUNTER 2019-07-01 11:30 | Emergency (ER) | payer MEDICARE, BC ==
--- NOTE | 2019-07-01 12:11 | RAD ---
Exam: Left shoulder 3 views: HISTORY: Deformities swelling following injury FINDINGS: Arthrosis and degenerative changes of the A/C joint and glenohumeral joint. Scattered articular or pe riarticular ossification changes possibly calcific peritendonosis versus evidence for chondrocalcinosis or other periarticular areas of ossification. No acute fracture, dislocation, or ot her acute osseous process. 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 Some nonspecific scattered areas of calcification/ossification in the periarticular region. If the patient has persistent or worsening unexplained pain, nonemergent follow-up MRI study might be considered.
[2019-07-01] MEDS ORDERED: Fentanyl 100 MCG/2 ML VIAL ONE (12:26)
[2019-07-01] MEDS ORDERED: HYDROcodone/Acetaminophen 5/325 mg Tablet ONE (13:28)
[2019-07-01] MEDS ORDERED: Dexamethasone 10 MG/ML VIAL ONE (13:30)
== END 2019-07-01 13:08 | disposition home or self-care (01) ==
LOC: ERS 11:30
DX: M25.512 Pain in left shoulder (principal); I10 Essential (primary) hypertension; E11.9 Type 2 diabetes mellitus without complications; K21.9 Gastro-esophageal reflux disease without esophagitis; Z79.84 Long term (current) use of oral hypoglycemic drugs; Z79.82 Long term (current) use of aspirin; Z79.899 Other long term (current) drug therapy
CPT/HCPCS: 96374; J1100; J3010

== ENCOUNTER 2019-10-23 21:08 | Emergency (ER) | payer MEDICARE, BC ==
[2019-10-23 22:01] LABS: #Lymphocytes 0.9 thou/uL (1.20-3.40); #Monocytes 0.1 thou/uL (0.11-0.59); #Neutrophils 3.1 thou/uL (1.40-6.50); %Basophils 0.5 % (0.0-1.0); %Eosinophils 0.2 % (0.0-10.0); %Lymphocytes 21.7 % (21.0-51.0); %Monocytes 3.3 % (0.0-10.0); %Neutrophils 74.4 % (42.0-75.0); Hemoglobin 13.2 g/dL (12.0-16.0); Mean Corpuscular HGB CONC 34.2 g/dL (32.0-36.0); Mean Corpuscular Volume 87.6 fL (78.0-98.0); Mean Platelet Volume 9.1 fL (7.4-10.4); Platelet Count 149 thou/uL (130-400); RBC Distribution Width 14.8 % (11.5-14.5); Red Blood Cell (RBC) Count 4.41 mill/uL (4.20-5.40); White Blood Cell (WBC) Count 4.1 thou/uL (4.8-10.8)
[2019-10-23 22:10] LABS: Bacteria/HPF 4+ HPF (None Seen); Bilirubin Negative (Negative); Blood, Urine Negative (Negative); Clarity Clear (Clear); Glucose, Urine (Dipstick) Normal (Negative); Leukocyte Negative Leu/uL (Negative); Nitrite Negative (Negative); Protein, Urine (Dipstick) 30 mg/dL (Neg-Trace); RBC/HPF 0-3 HPF (0-3); Squamous Epithelial 0-3 HPF (0-3); Urobilinogen Normal mg/dL (Less than 2)
[2019-10-23 22:27] LABS: ALT (SGPT) 24 U/L (8-55); AST (SGOT) 29 U/L (5-34); Albumin 3.7 g/dL (3.4-4.8); Alkaline Phosphatase 131 U/L (40-110); Anion Gap 14 mmol/L (10-20); BUN (Urea Nitrogen) 12 mg/dL (9.8-20.1); Bilirubin, Total 0.2 mg/dL (0.2-1.2); CK (CPK) 119 U/L (29-168); Calc. Creatinine Clearance 0 mL/min (70-130); Carbon Dioxide 23 mmol/L (23-31); Chloride 102 mmol/L (98-107); Estimated GFR-MDRD 76; Globulin 3.2 g/dL (2.4-3.5); Glucose 139 mg/dL (80-115); Lipase 51 U/L (8-78); Potassium 4.4 mmol/L (3.5-5.1); Protein, Total 6.9 g/dL (6.0-8.3); Sodium 135 mmol/L (136-145)
--- NOTE | 2019-10-24 09:44 | RAD ---
PORTABLE CHEST: HISTORY: Cough and shortness of breath. COMPARISON: 11/22/2018 exam. FINDINGS: Heart size is borderline. A left-sided MediPort catheter is present. There are some patchy parenchy mal lung changes more suggestive of infiltrate than pulmonary edema. IMPRESSION: Bilateral patchy infiltrative lung changes. POS: JEANNE
--- NOTE | 2019-10-26 17:06 | EKG ---
Test Reason : Blood Pressure : / mmHG Vent. Rate : 064 BPM Atrial Rate : 064 BPM P-R Int : 274 ms QRS Dur : 106 ms QT Int : 398 ms P-R-T Axes : 062 033 045 degrees QTc Int : 410 ms Sinus rhythm with sinus arrhythmia with 1st degree A-V block Incomplete right bundle branch block Borderline ECG Confirmed by JESSICA SOARES ([id number]), editor managing director ROBEL GAFFNEY ([id number]) on 10/26/2019 5:05:53 PM Referred By: Confirmed By:JESSICA Burch
== END 2019-10-23 23:40 | disposition home or self-care (01) ==
LOC: ERS 21:08
DX: U07.1 COVID-19 (principal); J12.89 Other viral pneumonia; I10 Essential (primary) hypertension; K21.9 Gastro-esophageal reflux disease without esophagitis; Z79.899 Other long term (current) drug therapy; Z79.84 Long term (current) use of oral hypoglycemic drugs; Z79.82 Long term (current) use of aspirin
CPT/HCPCS: 71045; 80053; 81003; 81015; 82550; 83690; 84484; 85025; 87077; 87086; 87186; 93005